=== PATIENT | male | born 1990 | race Hispanic/Latino ===

== ENCOUNTER 2016-10-28 10:17 | Emergency (ER) | payer MEDICAID ==
[2016-10-28 10:17] VITALS: BMI 19.8
[2016-10-28 10:26] VITALS: BP 132/74; RESP 20; TEMP 99.2; O2SAT 96
--- NOTE | 2016-10-28 10:45 | ED PDOC ---
HPI: Wound Care - HPI Time Seen by Provider: 10/28/16 10:37 Chief Complaint (Nursing): Wound Check History Per: Patient Exam Limitations: no limitations Additional Complaint(s): pt. arrives for suture removal, 2 sutures in R eyebrow, no complaints. clean and dry. Past Medical History Reviewed: Historical Data, Nursing Documentation, Vital Signs Vital Signs: Last Vital Signs Temp 99.2 F 10/28/16 10:24 Pulse 108 H 10/28/16 10:24 Resp 20 10/28/16 10:24 BP 132/74 10/28/16 10:24 Pulse Ox 96 10/28/16 10:24 - Medical History PMH: Anxiety (in childhood), Depression (in childhood) - Family History Family History: States: Unknown Family Hx - Immunization History Hx Tetanus Toxoid Vaccination: Yes (UTD) - Home Medications Home Medications: Ambulatory Orders Medication Instructions Recorded No Known Home Med 10/16/16 - Allergies Allergies/Adverse Reactions: Allergies Allergy/AdvReac Type Severity Reaction Status Date / Time No Known Allergies Allergy Verified 10/28/16 10:36 Review of Systems ROS Statement: Except As Marked, All Systems Reviewed And Found Negative Physical Exam - Physical Exam Appears: Positive for: Well, No Acute Distress Head Exam: Positive for: ATRAUMATIC (sutures in place, clean and dry, no drainage/erythema), NORMAL INSPECTION, NORMOCEPHALIC - ECG O2 Sat by Pulse Oximetry: 96 Disposition - Clinical Impression Clinical Impression: Visit for suture removal - Disposition Referrals: [facility] [Outside] Disposition Time: 10:45 Condition: STABLE Instructions: Stitches Removal (ED)
[2016-10-28 11:02] VITALS: PULSE 90
== END 2016-10-28 10:56 | disposition home or self-care (01) ==
LOC: H.ER 10:17
DX: Z48.02 Encounter for removal of sutures (principal)

== ENCOUNTER 2016-11-12 14:24 | Emergency (ER) | payer MEDICAID ==
[2016-11-12 14:26] VITALS: BMI 19.8
--- NOTE | 2016-11-12 15:53 | ED PDOC ---
HPI: General Adult Time Seen by Provider: 11/12/16 15:38 Chief Complaint (Nursing): Back Pain Chief Complaint (Provider): Fever History Per: Patient History/Exam Limitations: no limitations Onset/Duration Of Symptoms: Hrs (x2.5) Have you had recent travel within the past 21 days to any of the following countries: [place], [place], [place] or [place]?: No Current Symptoms Are (Timing): Still Present Severity: Moderate Additional Complaint(s): Dereck Wesley is a 26 year old male, with no pertinent past medical history, who presents to the ED on 11/12/16 for the evaluation of a fever (Tmax 102.0F) that he has reportedly experienced x2.5 hours. Associated chills (since resolved ), sweats, nasal congestion and b/l lower back pain also reported, though he denies throat pain, cough, abdominal pain, nausea, vomiting, diarrhea, dysuria or testicular pain. Denies alcohol or drug use. No headaches, dizziness. No injury to back. Does not use drugs or etoh. PMD: none Past Medical History Reviewed: Historical Data, Nursing Documentation, Vital Signs Vital Signs: Last Vital Signs Temp 98.9 F 11/12/16 18:39 Pulse 80 11/12/16 18:39 Resp 14 11/12/16 18:39 BP 100/44 L 11/12/16 18:39 Pulse Ox 100 11/12/16 18:39 - Medical History PMH: Anxiety (in childhood), Depression (in childhood) Other PMH: ADHD - Surgical History Surgical History: No Surg Hx - Family History Family History: States: Unknown Family Hx - Social History Current smoker - smoking cessation education provided: No Alcohol: None Drugs: Denies - Immunization History Hx Tetanus Toxoid Vaccination: Yes (UTD) - Home Medications Home Medications: Ambulatory Orders Medication Instructions Recorded Ibuprofen [Motrin] 600 mg PO TID 7 Days 11/12/16 - Allergies Allergies/Adverse Reactions: Allergies Allergy/AdvReac Type Severity Reaction Status Date / Time No Known Allergies Allergy Verified 10/28/16 10:36 Review of Systems ROS Statement: Except As Marked, All Systems Reviewed And Found Negative Constitutional: Positive for: Fever (Tmax 102.0F), Chills (resolved), Sweats ENT: Positive for: Nose Congestion. Negative for: Throat Pain Respiratory: Negative for: Cough, Shortness of Breath Gastrointestinal: Negative for: Nausea, Vomiting, Abdominal Pain, Diarrhea Genitourinary Male: Negative for: Dysuria, Other (no testicular pain) Musculoskeletal: Positive for: Back Pain (b/l low back) Skin: Negative for: Rash Neurological: Negative for: Weakness, Dizziness Physical Exam - Reviewed Nursing Documentation Reviewed: Yes Vital Signs Reviewed: Yes - Physical Exam Appears: Positive for: Non-toxic, No Acute Distress Head Exam: Positive for: ATRAUMATIC, NORMOCEPHALIC Skin: Positive for: Normal Color, Warm, Dry Eye Exam: Positive for: Normal appearance, PERRL ENT: Positive for: Nasal Congestion. Negative for: Pharyngeal Erythema, Tonsillar Exudate, Tonsillar Swelling Neck: Positive for: Normal, Painless ROM, Supple Cardiovascular/Chest: Positive for: Regular Rate, Rhythm. Negative for: Murmur Respiratory: Positive for: Normal Breath Sounds. Negative for: Respiratory Distress Gastrointestinal/Abdominal: Positive for: Normal Exam, Soft. Negative for: Tenderness Back: Positive for: Normal Inspection. Negative for: L CVA Tenderness, R CVA Tenderness Extremity: Positive for: Normal ROM. Negative for: Tenderness, Pedal Edema, Swelling Neurologic/Psych: Positive for: Alert, tipple greaser II-XII, Oriented. Negative for: Motor/Sensory Deficits - Laboratory Results Result Diagrams: 11/12/16 16:30 11/12/16 16:30 Interpretation Of Abn Labs: 12.4 wbc - ECG O2 Sat by Pulse Oximetry: 96 (RA) Pulse Ox Interpretation: Normal - Progress ED Course And Treament: 187: Stable. AAOx3. Pain free. No headaches or pain. Ambulating with no issues. Medical Decision Making Medical Decision Makin:38 Initial Impression: fever, chills, nasal congestion Initial Plan: * CXR * Labs * Alcohol Serum * Udip * Urine Drug Screen * Influenza A B * Rapid Strep * IV NS 1000ml at 1000mls/hr * Motrin 600mg PO * Reevaluation Scribe Attestation: Documented by Savi Sinha, acting as a scribe for Sergey Bansal MD. Provider Scribe Attestation: All medical record entries made by the Scribe were at my direction and personally dictated by me. I have reviewed the chart and agree that the record accurately reflects my personal performance of the history, physical exam, medical decision making, and the department course for this patient. I have also personally directed, reviewed, and agree with the discharge instructions and disposition. Disposition - Clinical Impression Clinical Impression: Back pain, URI (upper respiratory infection) - Patient ED Disposition Is Patient to be Admitted: No Counseled Patient/Family Regarding: Studies Performed, Diagnosis, Need For Followup, Rx Given - Disposition Referrals: [facility] [Outside] - 11/15/16 Disposition: Routine/Home Disposition Time: 18:55 Condition: STABLE Additional Instructions: Return if not better in 3 days. Prescriptions: Ibuprofen [Motrin] 600 mg PO TID 7 Days Instructions: Upper Respiratory Infection (ED), Acute Low Back Pain (ED)
[2016-11-12] MEDS ORDERED: Sodium Chloride 0.9% 1,000 ML IV STA (16:05)
[2016-11-12 17:09] LABS: BASO % 0.2 % (0.0-2.0); EOS % 0.1 % (0.0-4.0); HEMATOCRIT 39.4 % (35.0-51.0); LYMPH # 0.5 K/uL (1.0-4.3); LYMPH % 4.3 % (20.0-40.0); MEAN CELL VOLUME 82.7 fl (80.0-94.0); MEAN CORPUSCULAR HEMOGLOBIN 27.5 pg (27.0-31.0); MEAN CORPUSCULAR HGB CONC 33.2 g/dL (33.0-37.0); MEAN PLATELET VOLUME 9.2 fl (7.2-11.7); MONO # 1.4 K/uL (0.0-0.8); MONO % 11.1 % (0.0-10.0); NEUT # 10.5 K/uL (1.8-7.0); NEUT % 84.3 % (50.0-75.0); NRBC % 0.1 % (0.0-0.0); PLATELET COUNT 201 K/uL (130-400); RED CELL DISTRIBUTION WIDTH 14.2 % (11.5-14.5); WHITE BLOOD COUNT 12.4 K/uL (4.8-10.8)
[2016-11-12 17:16] LABS: ALB/GLOB RATIO 1.2 (1.0-2.1); ALCOHOL SERUM < 10 mg/dl (0-10); ALKALINE PHOSPHATASE 63 U/L (38-126); ALT/SGPT 43 U/L (21-72); AST/SGOT 50 U/L (17-59); BILIRUBIN,TOTAL 0.6 mg/dl (0.2-1.3); BLOOD UREA NITROGEN 18 mg/dl (9-20); CALCIUM 9.2 mg/dL (8.4-10.2); CARBON DIOXIDE 26 mmol/L (22-30); CHLORIDE 101 mmol/L (98-107); GFR AFRICAN-AMERICAN > 60; GLUCOSE,RANDOM 77 mg/dL (75-110); POTASSIUM 3.5 MMOL/L (3.6-5.0); SODIUM 140 mmol/l (132-148); TOTAL PROTEIN 7.4 G/DL (6.3-8.2)
[2016-11-12 18:31] VITALS: TEMP 98.9
[2016-11-12 18:31] LABS: NEUTROPHIL 84 % (42-75); TOTAL CELLS COUNTED 100
[2016-11-12 18:40] VITALS: BP 100/44; PULSE 80; RESP 14
[2016-11-12 18:57] VITALS: O2SAT 96
--- NOTE | 2016-11-13 08:24 | RAD ---
HISTORY: dyspnea COMPARISON: No prior. FINDINGS: LUNGS: No active pulmonary disease. PLEURA: No significant pleural effusion identified, no pneumothorax apparent. CARDIOVASCULAR: Normal. OSSEOUS STRUCTURES: No significant abnormalities. VISUALIZED UPPER ABDOMEN: Normal. OTHER FINDINGS: None. IMPRESSION: No active disease.
== END 2016-11-12 19:19 | disposition home or self-care (01) ==
LOC: H.ER 14:24
DX: J06.9 Acute upper respiratory infection, unspecified (principal); M54.9 Dorsalgia, unspecified; R09.81 Nasal congestion; R68.83 Chills (without fever); F90.9 Attention-deficit hyperactivity disorder, unspecified type

== ENCOUNTER 2017-01-30 01:51 | Inpatient (IN) | payer MEDICAID ==
[2017-01-30 01:51] VITALS: BMI 19.8
[2017-01-30 02:01] VITALS: O2SAT 100
--- NOTE | 2017-01-30 02:16 | ED PDOC ---
HPI: Psych/Substance Abuse Time Seen by Provider: 01/30/17 01:57 Chief Complaint (Nursing): Psychiatric Evaluation Chief Complaint (Provider): Crisis eval History Per: Patient Additional Complaint(s): 26 yo male, reports a PMH of Depression and ADHD, presents with complaints of feeling depressed because he has alot going on in his life; however, Pt appears to be manic. Flight of ideas with delusion so grandeur. Reports he wants to join the [employer]. Admits to doing PCP often, denies nay tonight Past Medical History Reviewed: Nursing Documentation, Vital Signs Vital Signs: Last Vital Signs Temp 98.4 F 01/30/17 01:59 Pulse 82 01/30/17 01:59 Resp 16 01/30/17 01:59 BP 121/84 01/30/17 01:59 Pulse Ox 100 01/30/17 01:59 - Medical History PMH: Anxiety (in childhood), Depression (in childhood) - Family History Family History: States: Unknown Family Hx - Social History Alcohol: Social - Immunization History Hx Tetanus Toxoid Vaccination: Yes (UTD) - Home Medications Home Medications: Ambulatory Orders Medication Instructions Recorded Ibuprofen [Motrin] 600 mg PO TID 7 Days 11/12/16 - Allergies Allergies/Adverse Reactions: Allergies Allergy/AdvReac Type Severity Reaction Status Date / Time No Known Allergies Allergy Verified 01/30/17 01:59 Review of Systems ROS Statement: Except As Marked, All Systems Reviewed And Found Negative Physical Exam - Reviewed Nursing Documentation Reviewed: Yes Vital Signs Reviewed: Yes - Physical Exam Appears: Positive for: Well, Non-toxic, No Acute Distress Head Exam: Positive for: ATRAUMATIC, NORMAL INSPECTION, NORMOCEPHALIC Skin: Positive for: Normal Color, Warm, DRY Eye Exam: Positive for: EOMI, Normal appearance, PERRL ENT: Positive for: Normal ENT Inspection Neck: Positive for: Normal, Painless ROM Cardiovascular/Chest: Positive for: Regular Rate, Rhythm Respiratory: Positive for: CNT, Normal Breath Sounds Gastrointestinal/Abdominal: Positive for: Normal Exam, Bowel Sounds, Soft Back: Positive for: Normal Inspection Extremity: Positive for: Normal ROM Neurologic/Psych: Positive for: Alert, Oriented - Laboratory Results Result Diagrams: 01/30/17 02:40 01/30/17 02:40 - ECG O2 Sat by Pulse Oximetry: 100 Medical Decision Making Medical Decision Making: Diagnostics ordered CBC and COMP resulted WNL Alcohol < 10 UDS pending Pt medically cleared and underwent crisis eval. See note. To be admitted. ED MD made aware Disposition - Clinical Impression Clinical Impression: Bipolar 1 disorder - Patient ED Disposition Is Patient to be Admitted: No - Disposition Disposition: Routine/Home Disposition Time: 03:46 Condition: STABLE - POA Present On Arrival: None
[2017-01-30 02:45] LABS: BASO % 0.5 % (0.0-2.0); EOS # 0.1 K/uL (0.0-0.7); EOS % 0.7 % (0.0-4.0); HEMATOCRIT 42.4 % (35.0-51.0); LYMPH # 1.6 K/uL (1.0-4.3); LYMPH % 19.8 % (20.0-40.0); MEAN CELL VOLUME 83.4 fl (80.0-94.0); MEAN CORPUSCULAR HEMOGLOBIN 28.6 pg (27.0-31.0); MEAN CORPUSCULAR HGB CONC 34.3 g/dL (33.0-37.0); MEAN PLATELET VOLUME 8.9 fl (7.2-11.7); MONO # 0.8 K/uL (0.0-0.8); MONO % 10.5 % (0.0-10.0); NEUT # 5.5 K/uL (1.8-7.0); NEUT % 68.5 % (50.0-75.0); NRBC % 0.2 % (0.0-0.0); RED CELL DISTRIBUTION WIDTH 13.7 % (11.5-14.5); WHITE BLOOD COUNT 8.1 K/uL (4.8-10.8)
[2017-01-30 02:58] LABS: ALB/GLOB RATIO 1.5 (1.0-2.1); ALCOHOL SERUM < 10 mg/dl (0-10); ALKALINE PHOSPHATASE 61 U/L (38-126); ALT/SGPT 39 U/L (21-72); AST/SGOT 30 U/L (17-59); BILIRUBIN,TOTAL 0.8 mg/dl (0.2-1.3); BLOOD UREA NITROGEN 17 mg/dl (9-20); CALCIUM 9.6 mg/dL (8.4-10.2); CARBON DIOXIDE 27 mmol/L (22-30); CHLORIDE 104 mmol/L (98-107); GFR AFRICAN-AMERICAN > 60; GLUCOSE,RANDOM 79 mg/dL (75-110); POTASSIUM 3.7 MMOL/L (3.6-5.0); SODIUM 144 mmol/l (132-148); TOTAL PROTEIN 8.2 G/DL (6.3-8.2)
[2017-01-30 05:39] LABS: RBC URINE 4 /hpf (0-3); URINE BACTERIA RARE (<OCC); URINE BILIRUBIN NEGATIVE (NEGATIVE); URINE BLOOD NEGATIVE (NEGATIVE); URINE COLOR YELLOW (YELLOW); URINE GLUCOSE (UA) NEG (Normal); URINE KETONE NEGATIVE (NEGATIVE); URINE LEUKOCYTE ESTERASE NEG Leu/uL (Negative); URINE PROTEIN NEGATIVE (NEGATIVE); WBC CLUMPS FEW /hpf; WBC URINE 10 /hpf (0-5)
[2017-01-30] MEDS ORDERED: Magnesium Hydroxide Susp 30 ml UD PO PRN (06:37)
[2017-01-30] MEDS ORDERED: DiphenhydrAMINE 50 mg/ml Inj IM PRN (06:37)
[2017-01-30] MEDS ORDERED: Alum-Mag Hydrox-Simethicone Susp (30 mL) PO PRN (06:37)
[2017-01-30 09:13] LABS: T4 7.14 ug/dl (5.5-11.0)
[2017-01-30 09:27] LABS: THYROID STIMULATING HORMONE 1.2 mIU/ML (0.46-4.68)
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
[2017-01-30 17:55] LABS: RBC URINE 1 /hpf (0-3); URINE BACTERIA RARE (<OCC); URINE BILIRUBIN NEGATIVE (NEGATIVE); URINE BLOOD NEGATIVE (NEGATIVE); URINE COLOR YELLOW (YELLOW); URINE GLUCOSE (UA) NEG (Normal); URINE KETONE NEGATIVE (NEGATIVE); URINE LEUKOCYTE ESTERASE NEG Leu/uL (Negative); URINE PROTEIN NEGATIVE (NEGATIVE); URINE UROBILINOGEN 0.2-1.0 mg/dL (0.2-1.0); WBC URINE 2 /hpf (0-5)
[2017-01-30] MEDS: Risperidone M tab 0.5MG PO SCH (21:42)
--- NOTE | 2017-01-31 12:44 | PCM.PYCHPN ---
Psychiatric Progress Note - Psychiatric Progress Note Patient seen today, length of contact: Patient evaluated, case discussed with team, chart reviewed, 35 minutes Patient Chief Complaint: "I'm not feeling that depressed anymore" Problems Identified/Issues Discussed: Patient reports that he is not feeling as depressed. He is requesting to be discharged. He denied ideation to harm himself. He is tangential on conversation at times but is able to be redirected. He talked about his chronic substance abuse in an inappropriately cheerful manner. He discussed that he used a PCP called "Paul merino". Associate Justice attempted to discuss the dangers of substance abuse and how it can affect mood/psychosis, but he has poor insight into his chronic substance use and has no intention of cessation. He denies current AH/VH/paranoia. Medication Change: Yes (Start Zoloft 50 mg PO Daily) Medical Record Reviewed: Yes Mental Status Examination - Cognitive Function Orientation: Person, Place, Situation, Time Memory: Intact Attention: WNL Concentration: WNL Association: Loose Fund of Knowledge: WNL Decription of patient's judgement and insights: Poor insight/judgment - Mood Mood: Neutral - Affect Affect: Broad - Speech Speech: Appropriate - Formal Thought Process Formal Thought Process: Loosening of associations, Flight of ideas Psychotic Thoughts and Behaviors: NO AH/VH/paranoia - Suicidal Ideation Suicidal Ideation: No - Homicidal Ideation Homicidal Ideation: No Goal/Treatment Plan - Goal/Treatment Plan Need for Continued Stay: Remain at risks for inpatient hospitalization Progress Toward Problem(s) and Goals/Treatment Plan: 26 yo male with mood disorder unspecified, could have substance induced mood and psychotic disorder, now denies mood and psychotic symptoms. He denies ideation to harm himself. Patient submitted a 48 hour letter requesting discharge. He does not meet criteria for involuntary commitment and will likely be discharged tomorrow. -Zoloft 50 mg PO Daily, Risperdal 0.5 mg PO HS -Disposition planning -Individual and group therapy Estimated Date of D/C: 02/01/17
[2017-01-31] MEDS: Risperidone M tab 0.5MG PO SCH (21:04)
[2017-02-01 06:04] VITALS: BP 115/68; PULSE 65; RESP 18; TEMP 97.1
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
[2017-02-01 08:38] LABS: HAV AB (IGM) Nonreactive (Nonreactive)
== END 2017-02-01 09:30 | disposition home or self-care (01) | DRG 430 ==
LOC: H.ER 01:51 → H.ERHOLD 03:39 → H.STEP 06:27
PROVIDERS: ADMIT Psychiatry & Neurology Psychiatry; ATTEND Psychiatry & Neurology Psychiatry
PROC: GZHZZZZ Group Psychotherapy (ICD-10-PCS; principal; 2017-01-30)
PROC: GZ58ZZZ Individual Psychotherapy, Cognitive-Behavioral (ICD-10-PCS; 2017-01-31)
DX: F31.60 Bipolar disorder, current episode mixed, unspecified (principal); F16.10 Hallucinogen abuse, uncomplicated; F14.90 Cocaine use, unspecified, uncomplicated; F39 Unspecified mood [affective] disorder; F12.90 Cannabis use, unspecified, uncomplicated; F43.10 Post-traumatic stress disorder, unspecified; F90.9 Attention-deficit hyperactivity disorder, unspecified type; F17.210 Nicotine dependence, cigarettes, uncomplicated; Z91.410 Personal history of adult physical and sexual abuse

== ENCOUNTER 2017-02-10 00:51 | Emergency (ER) | payer MEDICAID ==
[2017-02-10 00:53] VITALS: BMI 19.8
[2017-02-10 01:00] VITALS: BP 107/62; PULSE 62; RESP 17; TEMP 97.8; O2SAT 99
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
== END 2017-02-10 05:18 ==
LOC: H.ER 00:51
DX: F43.20 Adjustment disorder, unspecified (principal); F31.9 Bipolar disorder, unspecified; F41.9 Anxiety disorder, unspecified; Z91.19 Patient's noncompliance with other medical treatment and regimen

== ENCOUNTER 2017-08-06 21:30 | Emergency (ER) | payer MEDICAID ==
[2017-08-06 21:30] VITALS: BMI 19.8
[2017-08-06 21:38] VITALS: BP 141/82; PULSE 99; RESP 16; TEMP 98.2; O2SAT 99
--- NOTE | 2017-08-06 22:04 | ED PDOC ---
HPI: Psych/Substance Abuse Time Seen by Provider: 08/06/17 22:00 Chief Complaint (Nursing): Psychiatric Evaluation Chief Complaint (Provider): crisis eval History Per: Patient Additional Complaint(s): 27 year old male with history of anxiety and depression presents for crisis evaluation. Patient states he has been feeling suicidal today and almost threw himself in front of a car today. Patient states he smoked PCP today and marijuana to see if this would help his anxiety but it did not. He denies use of alcohol or any other drugs. Patient states he is currently undomiciled. He states he used to take zoloft and rsiperdal but have off of these meds for several months. Past Medical History Reviewed: Historical Data, Nursing Documentation, Vital Signs Vital Signs: Last Vital Signs Temp 98.2 F 08/06/17 21:35 Pulse 99 H 08/06/17 21:35 Resp 16 08/06/17 21:35 BP 141/82 08/06/17 21:35 Pulse Ox 99 08/06/17 21:35 - Medical History PMH: Anxiety, Bipolar Disorder, Depression - Surgical History Surgical History: No Surg Hx - Family History Family History: States: Unknown Family Hx - Living Arrangements Living Arrangements: Other (undomiciled) - Social History Current smoker - smoking cessation education provided: Yes Alcohol: None Drugs: Cannabis, Other (PCP) - Immunization History Hx Tetanus Toxoid Vaccination: Yes (UTD) - Home Medications Home Medications: Ambulatory Orders Medication Instructions Recorded Risperidone 0.5 mg PO HS #30 tablet 01/31/17 Sertraline [Zoloft] 50 mg PO DAILY #30 tab 01/31/17 Ibuprofen [Motrin] 600 mg PO TID 7 Days tab 05/01/17 - Allergies Allergies/Adverse Reactions: Allergies Allergy/AdvReac Type Severity Reaction Status Date / Time No Known Allergies Allergy Verified 06/16/17 00:37 Review of Systems ROS Statement: Except As Marked, All Systems Reviewed And Found Negative Psych: Positive for: Anxiety, Depression, Suicidal ideation, Other (substance abuse) Physical Exam - Reviewed Nursing Documentation Reviewed: Yes Vital Signs Reviewed: Yes - Physical Exam Appears: Positive for: Well, Non-toxic, No Acute Distress Skin: Negative for: Rash Eye Exam: Positive for: Normal appearance Cardiovascular/Chest: Positive for: Regular Rate, Rhythm Respiratory: Positive for: Normal Breath Sounds Neurologic/Psych: Positive for: Alert, Oriented, Mood/Affect (anxious) - Laboratory Results Result Diagrams: 08/06/17 00:02 08/06/17 00:02 - ECG O2 Sat by Pulse Oximetry: 99 Pulse Ox Interpretation: Normal Medical Decision Making Medical Decision Makin27 year old male here for crisis eval Plan: 1:1 bedside observation Crisis consult CBC CMP BAL UDS UA Given use of PCP this evening, as per crisis counselor and psychiatrist wagon driller Dr. Elias, patient will be observed in ED for several hours and then re- evaluated to determine possible indication for admission. Patient agrees with plan. Crisis counselor will re-evaluate patient at 4:00 am. 4:00 am: crisis counselor at bedside for re-evaluation. Patient is no longer suicidal. He is stable for discharge. Disposition - Clinical Impression Clinical Impression: Substance induced mood disorder - Patient ED Disposition Is Patient to be Admitted: No Counseled Patient/Family Regarding: Need For Followup - Disposition Referrals: [facility] [Outside] Disposition: Routine/Home Disposition Time: 05:04 Condition: STABLE Additional Instructions: Follow up as directed. Instructions: Polysubstance Abuse (ED), Mood Disorders (ED) Forms: [employer] (Nepali) Results - Lab Results Lab Results: 08/06/17 08/06/17 08/06/17 23:57 23:57 00:02 WBC 9.1 RBC 5.37 Hgb 14.8 Hct 44.5 MCV 82.9 MCH 27.5 MCHC 33.2 RDW 13.3 Plt Count 272 MPV 8.8 Neut % (Auto) 71.2 Lymph % (Auto) 23.0 Barren % (Auto) 5.4 Eos % (Auto) 0.1 Baso % (Auto) 0.3 Neut # 6.4 Lymph # 2.1 Barren # 0.5 Eos # 0.0 Baso # 0.0 Sodium Potassium Chloride Carbon Dioxide Anion Gap BUN Creatinine Est GFR ( Amer) Est GFR (Non-Af Amer) Random Glucose Calcium Total Bilirubin AST ALT Alkaline Phosphatase Total Protein Albumin Globulin Albumin/Globulin Ratio Urine Color Yellow Urine Clarity Slighty-cloudy Urine pH 5.0 Ur Specific [place] 1.020 Urine Protein 30 Urine Glucose (UA) Neg Urine Ketones 80 Urine Blood Negative Urine Nitrate Negative Urine Bilirubin Negative Urine Urobilinogen 2.0 Ur Leukocyte Esterase Neg Urine RBC (Auto) 4 H Urine Microscopic WBC 3 Urine Opiates Screen Negative Urine Methadone Screen Negative Ur Barbiturates Screen Negative Ur Phencyclidine Scrn Positive H Ur Amphetamines Screen Negative U Benzodiazepines Scrn Negative U Oth Cocaine Metabols Negative U Cannabinoids Screen Positive H Alcohol, Quantitative 08/06/17 00:02 WBC RBC Hgb Hct MCV MCH MCHC RDW Plt Count MPV Neut % (Auto) Lymph % (Auto) Barren % (Auto) Eos % (Auto) Baso % (Auto) Neut # Lymph # Barren # Eos # Baso # Sodium 140 Potassium 4.0 Chloride 103 Carbon Dioxide 25 Anion Gap 16 BUN 26 H Creatinine 0.9 Est GFR ( Amer) > 60 Est GFR (Non-Af Amer) > 60 Random Glucose 81 Calcium 9.7 Total Bilirubin 1.0 AST 25 ALT 29 Alkaline Phosphatase 76 Total Protein 8.3 H Albumin 4.8 Globulin 3.5 Albumin/Globulin Ratio 1.4 Urine Color Urine Clarity Urine pH Ur Specific [place] Urine Protein Urine Glucose (UA) Urine Ketones Urine Blood Urine Nitrate Urine Bilirubin Urine Urobilinogen Ur Leukocyte Esterase Urine RBC (Auto) Urine Microscopic WBC Urine Opiates Screen Urine Methadone Screen Ur Barbiturates Screen Ur Phencyclidine Scrn Ur Amphetamines Screen U Benzodiazepines Scrn U Oth Cocaine Metabols U Cannabinoids Screen Alcohol, Quantitative < 10
[2017-08-07 00:09] LABS: BASO % 0.3 % (0.0-2.0); EOS % 0.1 % (0.0-4.0); HEMATOCRIT 44.5 % (35.0-51.0); LYMPH # 2.1 K/uL (1.0-4.3); MEAN CELL VOLUME 82.9 fl (80.0-94.0); MEAN CORPUSCULAR HEMOGLOBIN 27.5 pg (27.0-31.0); MEAN CORPUSCULAR HGB CONC 33.2 g/dL (33.0-37.0); MEAN PLATELET VOLUME 8.8 fl (7.2-11.7); MONO # 0.5 K/uL (0.0-0.8); MONO % 5.4 % (0.0-10.0); NEUT # 6.4 K/uL (1.8-7.0); NEUT % 71.2 % (50.0-75.0); NRBC % 0.5 % (0.0-0.0); RED CELL DISTRIBUTION WIDTH 13.3 % (11.5-14.5); WHITE BLOOD COUNT 9.1 K/uL (4.8-10.8)
[2017-08-07 00:16] LABS: RBC URINE 4 /hpf (0-3); URINE BILIRUBIN NEGATIVE (NEGATIVE); URINE BLOOD NEGATIVE (NEGATIVE); URINE COLOR YELLOW (YELLOW); URINE GLUCOSE (UA) NEG (Normal); URINE KETONE 80 mg/dL (NEGATIVE); URINE LEUKOCYTE ESTERASE NEG Leu/uL (Negative); URINE PROTEIN 30 mg/dL (NEGATIVE); WBC URINE 3 /hpf (0-5)
[2017-08-07 00:18] LABS: ALCOHOL SERUM < 10 mg/dl (0-10); ALKALINE PHOSPHATASE 76 U/L (38-126); ALT/SGPT 29 U/L (21-72); AST/SGOT 25 U/L (17-59); BLOOD UREA NITROGEN 26 mg/dl (9-20); CALCIUM 9.7 mg/dL (8.4-10.2); CARBON DIOXIDE 25 mmol/L (22-30); CHLORIDE 103 mmol/L (98-107); GFR AFRICAN-AMERICAN > 60; GLUCOSE,RANDOM 81 mg/dL (75-110); SODIUM 140 mmol/l (132-148); TOTAL PROTEIN 8.3 G/DL (6.3-8.2)
[2017-08-07 00:19] LABS: ALB/GLOB RATIO 1.4 (1.0-2.1)
== END 2017-08-07 05:24 | disposition home or self-care (01) ==
LOC: H.ER 21:30
DX: F32.9 Major depressive disorder, single episode, unspecified (principal); F31.9 Bipolar disorder, unspecified; F41.9 Anxiety disorder, unspecified; F19.94 Other psychoactive substance use, unspecified with psychoactive substance-induced mood disorder; F17.200 Nicotine dependence, unspecified, uncomplicated

== ENCOUNTER 2018-04-16 08:35 | Emergency (ER) | payer MEDICAID ==
[2018-04-16 08:39] VITALS: BMI 20.2
[2018-04-16 08:42] VITALS: BP 102/64; PULSE 71; RESP 20; TEMP 97.9; O2SAT 97
--- NOTE | 2018-04-16 09:18 | ED PDOC ---
HPI: Dental Pain/Injury Time Seen by Provider: 04/16/18 08:47 Chief Complaint (Nursing): Dental Pain Chief Complaint (Provider): Dental Pain History Per: Patient History/Exam Limitations: no limitations Onset/Duration Of Symptoms: Days (x 2) Current Symptoms Are (Timing): Still Present Quality: "Pain" Additional Complaint(s): 27 year old male presents to the ED with a dental abscess ongoing for the last 2 days. Patient was seen here two days ago and at 1 am this morning and was unable to fill antibiotic prescription due to insurance discrepancy. He is requesting Motrin and a dose of penicillin. Patient reports that mother is going to fill his prescription and will give it to him this afternoon, but he wanted a dose prior. Offers no other medical complaints. PMD: none provided Past Medical History Reviewed: Historical Data, Nursing Documentation, Vital Signs Vital Signs: Last Vital Signs Temp 97.9 F 04/16/18 08:39 Pulse 71 04/16/18 08:39 Resp 20 04/16/18 08:39 BP 102/64 04/16/18 08:39 Pulse Ox 97 04/16/18 08:39 - Medical History PMH: Anxiety, Bipolar Disorder, Depression, Schizophrenia Denies: Diabetes, Hepatitis, HIV, HTN, Chronic Kidney Disease, Seizures, Sexually Transmitted Disease - Surgical History Surgical History: No Surg Hx - Family History Family History: States: Unknown Family Hx - Immunization History Hx Tetanus Toxoid Vaccination: Yes (UTD) Hx Influenza Vaccination: Yes Hx Pneumococcal Vaccination: Yes - Home Medications Home Medications: Ambulatory Orders Medication Instructions Recorded traZODone [Desyrel] 50 mg PO HS #30 tab 10/24/17 Penicillin VK [Penicillin VK Tab] 500 mg PO QID 11/19/17 QUEtiapine [SEROquel] 200 mg PO HS 30 Days #30 tab 11/24/17 Sertraline [Zoloft] 25 mg PO DAILY 30 Days #30 tab 11/24/17 Ibuprofen [Motrin] 600 mg PO Q8 PRN #21 tab 04/15/18 Penicillin VK [Penicillin VK Tab] 1 tab PO QID #40 tab 04/15/18 - Allergies Allergies/Adverse Reactions: Allergies Allergy/AdvReac Type Severity Reaction Status Date / Time No Known Allergies Allergy Verified 04/16/18 08:53 Review of Systems ROS Statement: Except As Marked, All Systems Reviewed And Found Negative ENT: Positive for: Mouth Swelling, Other (dental abscess, right side of his mouth) Physical Exam - Reviewed Nursing Documentation Reviewed: Yes Vital Signs Reviewed: Yes - Physical Exam Appears: Positive for: No Acute Distress Head Exam: Positive for: ATRAUMATIC, NORMAL INSPECTION, NORMOCEPHALIC Skin: Positive for: Normal Color, Warm, Dry Eye Exam: Positive for: EOMI, Normal appearance, PERRL ENT: Positive for: Other (Right lower jaw decayed all the way down to base of gums ) Cardiovascular/Chest: Positive for: Regular Rate, Rhythm Respiratory: Positive for: Normal Breath Sounds Neurologic/Psych: Positive for: Alert, Oriented (x 3). Negative for: Motor/ Sensory Deficits - ECG O2 Sat by Pulse Oximetry: 97 (RA) Pulse Ox Interpretation: Normal Medical Decision Making Medical Decision Makin:19 Impression: dental abscess Initial Plan: --Motrin 600 mg PO --Penicillin VK 500 mg PO Scribe Attestation: Documented by Narcisa Bennett, acting as a scribe for Karen Irizarry MD Provider Scribe Attestation: All medical record entries made by the Scribe were at my direction and personally dictated by me. I have reviewed the chart and agree that the record accurately reflects my personal performance of the history, physical exam, medical decision making, and the department course for this patient. I have also personally directed, reviewed, and agree with the discharge instructions and disposition. patient advised to get his the prescription filled. Disposition - Clinical Impression Clinical Impression: Dental caries - Patient ED Disposition Is Patient to be Admitted: No Doctor Will See Patient In The: Office Counseled Patient/Family Regarding: Diagnosis, Need For Followup - Disposition Disposition: Routine/Home Disposition Time: 09:15 Condition: STABLE Instructions: Tooth Decay, Adult Forms: [employer] (Togolese) - POA Present On Arrival: None
== END 2018-04-16 09:41 | disposition home or self-care (01) ==
LOC: H.ER 08:35
DX: K02.9 Dental caries, unspecified (principal)

== ENCOUNTER 2018-05-01 07:00 | Emergency (ER) | payer MEDICAID ==
[2018-05-01 07:15] VITALS: O2SAT 99
--- NOTE | 2018-05-01 07:22 | ED PDOC ---
HPI: General Adult Time Seen by Provider: 05/01/18 07:10 Chief Complaint (Nursing): Medical Clearance Chief Complaint (Provider): Medical clearance History Per: Patient History/Exam Limitations: no limitations Onset/Duration Of Symptoms: Hrs (today) Additional Complaint(s): Dereck Wesley is a 27 year old male, with a past medical history of HTN, who was brought to the emergency by [facility] for medical and psychiatric clearance prior to incarceration. Patient is currently complaining of a nonproductive cough. He denies any fever, chills, shortness of breath or other medical complaints. PMD: None provided. Past Medical History Reviewed: Historical Data, Nursing Documentation, Vital Signs Vital Signs: Last Vital Signs Temp 97.9 F 05/01/18 07:08 Pulse 69 05/01/18 07:08 Resp 18 05/01/18 07:08 BP 124/66 05/01/18 07:08 Pulse Ox 99 05/01/18 07:23 - Medical History PMH: Anxiety, Bipolar Disorder, Depression, Schizophrenia Denies: Diabetes, Hepatitis, HIV, HTN, Chronic Kidney Disease, Seizures, Sexually Transmitted Disease - Surgical History Surgical History: No Surg Hx - Family History Family History: States: Unknown Family Hx - Immunization History Hx Tetanus Toxoid Vaccination: Yes (UTD) Hx Influenza Vaccination: Yes Hx Pneumococcal Vaccination: Yes - Home Medications Home Medications: Ambulatory Orders Medication Instructions Recorded traZODone [Desyrel] 50 mg PO HS #30 tab 10/24/17 Penicillin VK [Penicillin VK Tab] 500 mg PO QID 11/19/17 QUEtiapine [SEROquel] 200 mg PO HS 30 Days #30 tab 11/24/17 Sertraline [Zoloft] 25 mg PO DAILY 30 Days #30 tab 11/24/17 Ibuprofen [Motrin] 600 mg PO Q8 PRN #21 tab 04/15/18 Penicillin VK [Penicillin VK Tab] 1 tab PO QID #40 tab 04/15/18 Azithromycin [Zithromax] 250 mg PO DAILY #6 tab 05/01/18 - Allergies Allergies/Adverse Reactions: Allergies Allergy/AdvReac Type Severity Reaction Status Date / Time No Known Allergies Allergy Verified 05/01/18 07:07 Review of Systems ROS Statement: Except As Marked, All Systems Reviewed And Found Negative Constitutional: Negative for: Fever, Chills Respiratory: Positive for: Cough (nonproductive). Negative for: Shortness of Breath Physical Exam - Reviewed Nursing Documentation Reviewed: Yes Vital Signs Reviewed: Yes - Physical Exam Appears: Positive for: No Acute Distress Head Exam: Positive for: ATRAUMATIC, NORMAL INSPECTION, NORMOCEPHALIC Skin: Positive for: Normal Color, Warm, Dry Eye Exam: Positive for: Normal appearance, EOMI, PERRL Neck: Positive for: Painless ROM Cardiovascular/Chest: Positive for: Regular Rate, Rhythm. Negative for: Murmur Respiratory: Positive for: Normal Breath Sounds. Negative for: Respiratory Distress Gastrointestinal/Abdominal: Positive for: Normal Exam, Soft. Negative for: Tenderness Back: Positive for: Normal Inspection Extremity: Positive for: Normal ROM (upper and lower extremities). Negative for : Deformity Neurologic/Psych: Positive for: Alert, Oriented - ECG O2 Sat by Pulse Oximetry: 99 (RA) Pulse Ox Interpretation: Normal Medical Decision Making Medical Decision Making: Time: 07:10 Initial Plan: --Chest portable [RAD] --Reevaluation ----- Scribe Attestation: Documented by Rosales Fernández, acting as a scribe for Demarcus Holguin MD. Provider Scribe Attestation: All medical record entries made by the Scribe were at my direction and personally dictated by me. I have reviewed the chart and agree that the record accurately reflects my personal performance of the history, physical exam, medical decision making, and the department course for this patient. I have also personally directed, reviewed, and agree with the discharge instructions and disposition. Disposition - Clinical Impression Clinical Impression: URI (upper respiratory infection) - Patient ED Disposition Is Patient to be Admitted: No Counseled Patient/Family Regarding: Studies Performed, Diagnosis, Need For Followup, Rx Given - Disposition Referrals: [facility] [Outside] Disposition: Routine/Home Disposition Time: 08:04 Condition: FAIR Prescriptions: Azithromycin [Zithromax] 250 mg PO DAILY #6 tab Instructions: General (DC), Bacterial Upper Respiratory Infection, Adult Forms: [employer] (Swedish)
[2018-05-01 08:12] VITALS: BP 113/68; PULSE 61; RESP 17; TEMP 97.4
--- NOTE | 2018-05-01 09:42 | RAD ---
Date of service: 05/01/2018 HISTORY: cough COMPARISON: Frontal chest radiograph 10/03/2017. FINDINGS: LUNGS: No active pulmonary disease. PLEURA: No significant pleural effusion identified, no pneumothorax apparent. CARDIOVASCULAR: Normal. OSSEOUS STRUCTURES: No significant abnormalities. VISUALIZED UPPER ABDOMEN: Normal. OTHER FINDINGS: None. IMPRESSION: No interval acute cardiopulmonary disease appreciated.
== END 2018-05-01 08:11 | disposition home or self-care (01) ==
LOC: H.ER 07:00
DX: J06.9 Acute upper respiratory infection, unspecified (principal); Z86.59 Personal history of other mental and behavioral disorders; Z00.8 Encounter for other general examination; I10 Essential (primary) hypertension

== ENCOUNTER 2018-05-26 20:08 | Emergency (ER) | payer MEDICAID ==
[2018-05-26 20:26] VITALS: BP 126/77; PULSE 66; RESP 18; TEMP 98.4; O2SAT 99
--- NOTE | 2018-05-26 21:12 | ED PDOC ---
HPI: CCC, URI, Sore Throat Time Seen by Provider: 05/26/18 20:30 Chief Complaint (Nursing): Flu-like Symptoms Chief Complaint (Provider): body aches History Per: Patient History/Exam Limitations: no limitations Onset/Duration Of Symptoms: Days (x2) Current Symptoms Are (Timing): Still Present Additional Complaint(s): 28 year old male with pmHx of bipolar disorder, presents to ED with complaints of generalized bodyaches, decreased appetite, and lower back pain since yesterday. He denies any nausea, vomiting, diarrhea, fever, chills, headaches, cough, nasal congestion, or sore throat. PMD: none Past Medical History Reviewed: Historical Data, Nursing Documentation, Vital Signs Vital Signs: Last Vital Signs Temp 98.4 F 05/26/18 20:23 Pulse 66 05/26/18 20:23 Resp 18 05/26/18 20:23 BP 126/77 05/26/18 20:23 Pulse Ox 99 05/26/18 20:23 - Medical History PMH: Anxiety, Bipolar Disorder, Depression, Schizophrenia - Surgical History Surgical History: No Surg Hx - Family History Family History: States: No Known Family Hx - Living Arrangements Living Arrangements: Other (non-domiciled) - Social History Current smoker - smoking cessation education provided: No Alcohol: None Drugs: Cannabis - Immunization History Hx Tetanus Toxoid Vaccination: Yes (UTD) - Home Medications Home Medications: Ambulatory Orders Medication Instructions Recorded traZODone [Desyrel] 50 mg PO HS #30 tab 10/24/17 Penicillin VK [Penicillin VK Tab] 500 mg PO QID 11/19/17 QUEtiapine [SEROquel] 200 mg PO HS 30 Days #30 tab 11/24/17 Sertraline [Zoloft] 25 mg PO DAILY 30 Days #30 tab 11/24/17 Ibuprofen [Motrin] 600 mg PO Q8 PRN #21 tab 04/15/18 Penicillin VK [Penicillin VK Tab] 1 tab PO QID #40 tab 04/15/18 Azithromycin [Zithromax] 250 mg PO DAILY #6 tab 05/01/18 - Allergies Allergies/Adverse Reactions: Allergies Allergy/AdvReac Type Severity Reaction Status Date / Time No Known Allergies Allergy Verified 05/26/18 20:23 Review of Systems ROS Statement: Except As Marked, All Systems Reviewed And Found Negative Constitutional: Positive for: Other (generalized bodyaches). Negative for: Fever, Chills ENT: Negative for: Nose Congestion, Throat Pain Respiratory: Negative for: Cough Gastrointestinal: Positive for: Other (decreased appetite). Negative for: Nausea, Vomiting, Diarrhea Musculoskeletal: Positive for: Back Pain (lower) Neurological: Negative for: Headache Physical Exam - Reviewed Nursing Documentation Reviewed: Yes Vital Signs Reviewed: Yes - Physical Exam Appears: Positive for: Well, Non-toxic, No Acute Distress Head Exam: Positive for: ATRAUMATIC, NORMAL INSPECTION, NORMOCEPHALIC Skin: Positive for: Normal Color Eye Exam: Positive for: Normal appearance ENT: Positive for: Normal ENT Inspection. Negative for: Sinus Pain/Drainage, Pharyngeal Erythema, Tonsillar Exudate, Tonsillar Swelling Neck: Positive for: Normal, Supple Cardiovascular/Chest: Positive for: Regular Rate, Rhythm Respiratory: Positive for: Normal Breath Sounds. Negative for: Wheezing, Respiratory Distress Back: Negative for: Vertebral Tenderness Extremity: Positive for: Normal ROM Neurologic/Psych: Positive for: Alert, Oriented - ECG O2 Sat by Pulse Oximetry: 99 (RA) Pulse Ox Interpretation: Normal Medical Decision Making Medical Decision Making: Initial Impression: Flu-like symptoms Initial Plan: * Motrin 600mg PO Time: 0920 --Patient left before completion of treatment. Scribe Attestation: Documented by Laurie Moncada, acting as a scribe for Yarely Graff PA-C. Provider Scribe Attestation: All medical record entries made by the Scribe were at my direction and personally dictated by me. I have reviewed the chart and agree that the record accurately reflects my personal performance of the history, physical exam, medical decision making, and the department course for this patient. I have also personally directed, reviewed, and agree with the discharge instructions and disposition. Disposition - Clinical Impression Clinical Impression: Influenza-like symptoms - Patient ED Disposition Is Patient to be Admitted: No - Disposition Disposition: Left W/O Treatment (Patient left emergency room before treatment was completed.) Disposition Time: 21:36 Condition: UNKNOWN Forms: [employer] (Turkish)
== END 2018-05-26 21:25 | disposition left against medical advice (07) ==
LOC: H.ER 20:08
DX: J11.1 Influenza due to unidentified influenza virus with other respiratory manifestations (principal); F20.9 Schizophrenia, unspecified; F31.9 Bipolar disorder, unspecified; F41.9 Anxiety disorder, unspecified

== ENCOUNTER 2018-05-31 23:13 | Emergency (ER) | payer MEDICAID ==
[2018-05-31 23:41] VITALS: BP 130/75; PULSE 90; RESP 19; TEMP 98; O2SAT 99
--- NOTE | 2018-06-01 | ED PDOC ---
HPI: Skin/Bite Injury Time Seen by Provider: 05/31/18 23:47 Chief Complaint (Nursing): Abnormal Skin Integrity Chief Complaint (Provider): boils History Per: Patient Additional Complaint(s): 28-year-old male presents with multiple boils to right arm 3 days. Patient states last week he got a tattoo to the same area. He has had mild purulent discharge from boils. No fever or chills. PMD: none Past Medical History Reviewed: Historical Data, Nursing Documentation, Vital Signs Vital Signs: Last Vital Signs Temp 98 F 05/31/18 23:37 Pulse 90 05/31/18 23:37 Resp 19 05/31/18 23:37 BP 130/75 05/31/18 23:37 Pulse Ox 99 05/31/18 23:37 - Medical History PMH: Anxiety, Bipolar Disorder, Depression, Schizophrenia - Surgical History Surgical History: No Surg Hx - Family History Family History: States: Unknown Family Hx - Living Arrangements Living Arrangements: Other (non-domiciled) - Social History Current smoker - smoking cessation education provided: Yes Alcohol: None Drugs: Denies - Immunization History Hx Tetanus Toxoid Vaccination: Yes (UTD) - Home Medications Home Medications: Ambulatory Orders Medication Instructions Recorded traZODone [Desyrel] 50 mg PO HS #30 tab 10/24/17 Penicillin VK [Penicillin VK Tab] 500 mg PO QID 11/19/17 QUEtiapine [SEROquel] 200 mg PO HS 30 Days #30 tab 11/24/17 Sertraline [Zoloft] 25 mg PO DAILY 30 Days #30 tab 11/24/17 Ibuprofen [Motrin] 600 mg PO Q8 PRN #21 tab 04/15/18 Penicillin VK [Penicillin VK Tab] 1 tab PO QID #40 tab 04/15/18 Azithromycin [Zithromax] 250 mg PO DAILY #6 tab 05/01/18 Clindamycin [Cleocin] 300 mg PO TID #21 cap 05/31/18 - Allergies Allergies/Adverse Reactions: Allergies Allergy/AdvReac Type Severity Reaction Status Date / Time No Known Allergies Allergy Verified 05/26/18 20:23 Review of Systems ROS Statement: Except As Marked, All Systems Reviewed And Found Negative Constitutional: Negative for: Fever Skin: Positive for: Other (boils to arm) Physical Exam - Reviewed Nursing Documentation Reviewed: Yes Vital Signs Reviewed: Yes - Physical Exam Appears: Positive for: Well, Non-toxic, No Acute Distress Skin: Positive for: Normal Color Eye Exam: Positive for: Normal appearance Cardiovascular/Chest: Positive for: Regular Rate, Rhythm Respiratory: Positive for: Normal Breath Sounds. Negative for: Respiratory Distress Extremity: Positive for: Other (multiple boils to right forearm) Neurologic/Psych: Positive for: Alert, Oriented - ECG O2 Sat by Pulse Oximetry: 99 Pulse Ox Interpretation: Normal Medical Decision Making Medical Decision Makin28 year old with boils to right arm Plan: PO clindamycin 300 mg given in ED Rx for clindamycin provided. Wound care instructions given. Patient was referred to clinic for follow-up. Disposition - Clinical Impression Clinical Impression: Boil - Patient ED Disposition Is Patient to be Admitted: No Counseled Patient/Family Regarding: Diagnosis, Need For Followup, Rx Given - Disposition Referrals: [facility] [Outside] Disposition: Routine/Home Disposition Time: 23:56 Condition: STABLE Additional Instructions: Take antibiotics as directed. Advil for pain as needed. Wash area daily with soap and water. Do not apply any topical creams or ointments. Follow-up in 2-3 days with clinic. Prescriptions: Clindamycin [Cleocin] 300 mg PO TID #21 cap Instructions: Boil
== END 2018-06-01 00:10 | disposition home or self-care (01) ==
LOC: H.ER 23:13
DX: L02.423 Furuncle of right upper limb (principal)

== ENCOUNTER 2018-06-03 15:31 | Emergency (ER) | payer MEDICAID ==
[2018-06-03 16:26] VITALS: BP 94/54; PULSE 84; RESP 16; TEMP 97.9; O2SAT 98
[2018-06-03] MEDS ORDERED: Tdap Vaccine 0.5 ml Vial (10-64 yrs) IM ONE ×2 (16:31→16:35)
[2018-06-03] MEDS ORDERED: Bacitracin 500 Units/gm Oint Foilpak UD TOP STA (16:31)
--- NOTE | 2018-06-03 16:35 | ED PDOC ---
HPI: Wound Care - HPI Time Seen by Provider: 06/03/18 16:04 Chief Complaint (Nursing): Upper Extremity Problem/Injury Chief Complaint (Provider): Wound check History Per: Patient Exam Limitations: no limitations Current Symptoms Are (Timing): Gone Now Quality Of Symptoms: Draining Additional Complaint(s): 28 year old male with a past medical history of a right arm abscess presents to the ED for wound follow up. Patient reports he was seen here 2x days ago for a right arm abscess sustained after a new tattoo. Patient was discharged with a p rescription for clindamycin which he has been taking 3x times a day. Patient was advised to follow up in 2x days. Patient reports his abscess drained of purulent material this morning. Patient reports overall improvement of symptoms since his previous visit. Patient denies having any complaints. Patient cannot recall last tetanus. Otherwise: (-) fever/chills (-) numbness, (-) other injury. PMD: None Past Medical History Reviewed: Historical Data, Nursing Documentation, Vital Signs Vital Signs: Last Vital Signs Temp 97.9 F 06/03/18 16:00 Pulse 84 06/03/18 16:00 Resp 16 06/03/18 16:00 BP 94/54 L 06/03/18 16:00 Pulse Ox 98 06/03/18 16:00 - Medical History PMH: Anxiety, Bipolar Disorder, Depression, Schizophrenia - Surgical History Surgical History: No Surg Hx - Family History Family History: States: No Known Family Hx - Social History Current smoker - smoking cessation education provided: Yes Alcohol: Other (yes) - Home Medications Home Medications: Ambulatory Orders Medication Instructions Recorded RX: traZODone [Desyrel] 50 mg PO HS #30 tab 10/24/17 RX: Penicillin VK [Penicillin VK 500 mg PO QID 11/19/17 Tab] RX: QUEtiapine [SEROquel] 200 mg PO HS 30 Days #30 tab 11/24/17 RX: Sertraline [Zoloft] 25 mg PO DAILY 30 Days #30 tab 11/24/17 Ibuprofen [Motrin] 600 mg PO Q8 PRN #21 tab 04/15/18 Penicillin VK [Penicillin VK Tab] 1 tab PO QID #40 tab 04/15/18 Azithromycin [Zithromax] 250 mg PO DAILY #6 tab 05/01/18 RX: Clindamycin [Cleocin] 300 mg PO TID #21 cap 05/31/18 RX: Bacitracin Ointment 1 applic TOP BID #1 tube 06/03/18 [Bacitracin] - Allergies Allergies/Adverse Reactions: Allergies Allergy/AdvReac Type Severity Reaction Status Date / Time No Known Allergies Allergy Verified 05/26/18 20:23 Review of Systems ROS Statement: Except As Marked, All Systems Reviewed And Found Negative Skin: Positive for: Other (abscess to right arm s/p tattoo) Physical Exam - Reviewed Nursing Documentation Reviewed: Yes Vital Signs Reviewed: Yes - Physical Exam Comments: GENERAL APPEARANCE: Patient is awake, alert, oriented x 3, resting comfortably, in no acute distress. SKIN: Warm, dry; (-) cyanosis. NECK: Supple, FROM CHEST AND RESPIRATORY: (-) rales, (-) rhonchi, (-) wheezes; breath sounds equal bilaterally. HEART AND CARDIOVASCULAR: (-) irregularity RIGHT ARM: Ventral aspect of mid right forearm: (+) 2x .5cm ruptured pustules, now dry and scabbed (-) evidence of cellulitis, (-) surrounding erythema (-) active draining (-) tenderness (-) swelling, (-) ecchymosis of right forearm (- ) deformity. (-) distal neurovascular deficit, (+) full ROM throughout upper extremity (+) sensation and capillary refill in tact NEURO AND PSYCH: Mental status as above. Gait: steady. Speech: clear. (-) facial asymmetry (-) aphasia - ECG O2 Sat by Pulse Oximetry: 98 (RA) Pulse Ox Interpretation: Normal Medical Decision Making Medical Decision Makin:05 Clinical impression: 28 year old male in the ED for a wound check Plan: * tetanus 0.5 mL IM * bacitracin 1 ea top dressing to wound sites * reevaluation 1654 On re-evaluation, patient reports improvement of symptoms. On exam, patient remains AAOx3, in no acute distress. Lungs clear to auscultation, cardiac RRR, repeat neuro exam shows no focal findings. Vitals stable. Patient educated on wound care. Advised to continue Clindamycin treatment until complete. Lab / Diagnostic results d/w the patient in great detail. Diagnosis of wound check d/w the patient. Based on history, exam and diagnostic results, plan will be for outpatient follow up. Patient instructed to follow-up with pmd / referral provided / the clinic in 1- 2 days without fail. Advised to take medication as prescribed. Return to the emergency room at any time for any new or worsening symptoms. Patient states he fully agrees with and understands discharge instructions. States that he agrees with the plan and disposition. Verbalized and repeated discharge instructions and plan. I have given the patient opportunity to ask any additional questions. Scribe Attestation: Documented by Veronica Junior, acting as a scribe for Veronica Vanessa Provider Scribe Attestation: All medical record entries made by the Scribe were at my direction and personally dictated by me. I have reviewed the chart and agree that the record accurately reflects my personal performance of the history, physical exam, medical decision making, and the department course for this patient. I have also personally directed, reviewed, and agree with the discharge instructions and disposition. Disposition - Clinical Impression Clinical Impression: Abscess, Encounter for wound re-check - Patient ED Disposition Is Patient to be Admitted: No Counseled Patient/Family Regarding: Studies Performed, Diagnosis, Need For Followup, Rx Given - Disposition Referrals: [facility] [Outside] Disposition: Routine/Home Disposition Time: 17:00 Condition: STABLE Additional Instructions: KEEP WOUNDS CLEAN AND DRY. COMPLETE CLINDAMYCIN TREATMENT AND APPLY OINTMENT DIRECTED. The emergency medical care you received today was directed at your acute symptoms. If you were prescribed any medication, please fill it and take as directed. It may take several days for your symptoms to resolve. Return to the Emergency Department if your symptoms worsen, do not improve, or if you have any other problems. Please contact your doctor in 2 days for re-evaluation and follow up / or call one of the physicians/clinics you have been referred to that are listed on the Patient Visit Information form that is included in your discharge packet. Bring any paperwork you were given at discharge with you along with any medications you are taking to your follow up visit. Our treatment cannot replace ongoing medical care by a primary care provider (PCP) outside of the emergency department. Prescriptions: RX: Bacitracin Ointment [Bacitracin] 1 applic TOP BID #1 tube Instructions: Boil, Skin Abscess, Wound Care Forms: [facility] (Icelandic) Print Language: FAROESE - POA Present On Arrival: None
== END 2018-06-03 17:05 | disposition home or self-care (01) ==
LOC: H.ER 15:31
DX: Z48.00 Encounter for change or removal of nonsurgical wound dressing (principal); Z23 Encounter for immunization; F17.200 Nicotine dependence, unspecified, uncomplicated; Z86.59 Personal history of other mental and behavioral disorders

== ENCOUNTER 2018-06-08 23:18 | Inpatient (IN) | payer MEDICAID ==
--- NOTE | 2018-06-09 00:29 | ED PDOC ---
HPI: Psych/Substance Abuse Time Seen by Provider: 06/09/18 00:09 Chief Complaint (Nursing): Psychiatric Evaluation Chief Complaint (Provider): Psychiatric Evaluation History Per: Patient History/Exam Limitations: no limitations Onset/Duration Of Symptoms: Hrs Current Symptoms Are (Timing): Still Present Associated Symptoms: Depression, Suicidal Thoughts Additional Complaint(s): 28 year old male with PMHx of depression presents to the ER for an evaluation of suicidal ideation. Patient reports of calling suicidal line stating he is suicidal and depressed. Patient admits he has suicidal thoughts. He denies any suicidal plans or homicidal ideation. PMD: No Family Provider Past Medical History Reviewed: Historical Data, Nursing Documentation, Vital Signs Vital Signs: Last Vital Signs Temp 98.4 F 06/08/18 23:38 Pulse 94 H 06/08/18 23:38 Resp 16 06/08/18 23:38 BP 131/67 06/08/18 23:38 Pulse Ox 96 06/08/18 23:38 - Medical History PMH: Anxiety, Bipolar Disorder, Depression, Schizophrenia Denies: Diabetes, Hepatitis, HIV, HTN, Chronic Kidney Disease, Seizures, Sexually Transmitted Disease - Family History Family History: States: Unknown Family Hx - Immunization History Hx Tetanus Toxoid Vaccination: Yes (UTD) Hx Influenza Vaccination: Yes Hx Pneumococcal Vaccination: Yes - Home Medications Home Medications: Ambulatory Orders Medication Instructions Recorded RX: traZODone [Desyrel] 50 mg PO HS #30 tab 10/24/17 RX: Penicillin VK [Penicillin VK 500 mg PO QID 11/19/17 Tab] RX: QUEtiapine [SEROquel] 200 mg PO HS 30 Days #30 tab 11/24/17 RX: Sertraline [Zoloft] 25 mg PO DAILY 30 Days #30 tab 11/24/17 Ibuprofen [Motrin] 600 mg PO Q8 PRN #21 tab 04/15/18 Penicillin VK [Penicillin VK Tab] 1 tab PO QID #40 tab 04/15/18 Azithromycin [Zithromax] 250 mg PO DAILY #6 tab 05/01/18 RX: Clindamycin [Cleocin] 300 mg PO TID #21 cap 05/31/18 RX: Bacitracin Ointment 1 applic TOP BID #1 tube 06/03/18 [Bacitracin] - Allergies Allergies/Adverse Reactions: Allergies Allergy/AdvReac Type Severity Reaction Status Date / Time No Known Allergies Allergy Verified 06/08/18 23:57 Review of Systems ROS Statement: Except As Marked, All Systems Reviewed And Found Negative Psych: Positive for: Depression, Suicidal ideation. Negative for: Other (homicidal ideation ) Physical Exam - Reviewed Nursing Documentation Reviewed: Yes Vital Signs Reviewed: Yes - Physical Exam Appears: Positive for: Non-toxic Head Exam: Positive for: ATRAUMATIC, NORMAL INSPECTION, NORMOCEPHALIC Skin: Positive for: Normal Color, Warm, Dry Eye Exam: Positive for: Normal appearance, EOMI, PERRL ENT: Positive for: Normal ENT Inspection Neck: Positive for: Normal, Painless ROM, Supple. Negative for: Decreased ROM Cardiovascular/Chest: Positive for: Regular Rate, Rhythm. Negative for: Murmur Respiratory: Positive for: Normal Breath Sounds. Negative for: Decreased Breath Sounds, Wheezing, Respiratory Distress Gastrointestinal/Abdominal: Positive for: Normal Exam, Soft. Negative for: Tenderness, Guarding, Rebound Back: Positive for: Normal Inspection Extremity: Positive for: Normal ROM. Negative for: Tenderness, Pedal Edema, Deformity Neurologic/Psych: Positive for: Alert, Oriented (x3). Negative for: Motor/Sensory Deficits - Laboratory Results Result Diagrams: 06/09/18 00:30 06/09/18 00:30 - ECG O2 Sat by Pulse Oximetry: 96 (RA) Pulse Ox Interpretation: Normal Medical Decision Making Medical Decision Making: Time: 17 Initial Impression: suicidal ideation Initial Plan: Alcohol Serum BMP Drug Screen Crisis Evaluation CBC w/ Differential Reevaluation Vital signs are stable. Labs reviewed. In my opinion there are no current acute medical conditions that contraindicate the placement of this patient in a psychiatric unit. ----- Scribe Attestation: Documented by Sandra Golden, acting as a scribe for Jim Jung MD. Provider Scribe Attestation: All medical record entries made by the Scribe were at my direction and perso evaristo dictated by me. I have reviewed the chart and agree that the record accurately reflects my personal performance of the history, physical exam, medical decision making, and the department course for this patient. I have also personally directed, reviewed, and agree with the discharge instructions and disposition. Disposition - Clinical Impression Clinical Impression: Depression - Patient ED Disposition Is Patient to be Admitted: Yes Counseled Patient/Family Regarding: Studies Performed, Diagnosis - Disposition Disposition Time: 02:00 Condition: STABLE - Pt Status Changed To: Hospital Disposition Of: Inpatient - Admit Certification Admit to Inpatient:: After my assessment, the patient will require hospitalizat ion for at least two midnights. This is because of the severity of symptoms shown, intensity of services needed, and/or the medical risk in this patient being treated as an outpatient. - POA Present On Arrival: None
[2018-06-09 00:45] LABS: BASO % 0.3 % (0.0-2.0); EOS # 0.1 K/uL (0.0-0.7); EOS % 1.6 % (0.0-4.0); HEMOGLOBIN 13.9 g/dL (12.0-18.0); LYMPH # 2.3 K/uL (1.0-4.3); LYMPH % 39.1 % (20.0-40.0); MEAN CELL VOLUME 83.2 fl (80.0-94.0); MEAN CORPUSCULAR HEMOGLOBIN 28.2 pg (27.0-31.0); MEAN CORPUSCULAR HGB CONC 33.9 g/dL (33.0-37.0); MEAN PLATELET VOLUME 8.5 fl (7.2-11.7); MONO # 0.4 K/uL (0.0-0.8); MONO % 6.9 % (0.0-10.0); NEUT # 3.1 K/uL (1.8-7.0); NEUT % 52.1 % (50.0-75.0); NRBC % 0.1 % (0.0-0.0); RBC 4.9 Mil/uL (4.40-5.90); RED CELL DISTRIBUTION WIDTH 13.1 % (11.5-14.5)
[2018-06-09 00:52] LABS: BLOOD UREA NITROGEN 18 mg/dl (9-20); CALCIUM 9.6 mg/dL (8.4-10.2); GFR NON-AFRICAN AMERICAN > 60
[2018-06-09 04:27] LABS: BARBITURATES, UR NEGATIVE (NEGATIVE); BENZODIAZEPINES, UR NEGATIVE (NEGATIVE); OPIATES, UR NEGATIVE (NEGATIVE); PHENCYCLIDINE, UR POSITIVE (NEGATIVE)
[2018-06-09] MEDS ORDERED: Alum-Mag Hydrox-Simethicone Susp (30 mL) PO PRN (05:19)
[2018-06-09] MEDS ORDERED: Magnesium Hydroxide Susp 30 ml UD PO PRN (05:19)
[2018-06-09] MEDS ORDERED: DiphenhydrAMINE 50 mg/ml Inj IM PRN (05:19)
--- NOTE | 2018-06-09 05:36 | PCM.BM ---
<Russ Jara P - Last Filed: 06/09/18 05:35> Treatment Plan Problems - Problems identified on initial assessmt Hopelessness/Helplessness Date Initiated: 06/09/18 Time Initiated: 05:35 Assessment reference: NA Status: Active Medication nonadherence Date Initiated: 06/09/18 Time Initiated: 05:36 Assessment reference: NA Status: Active Treatment assets and liabiliti Patient Assests: adapts well, cooperative, resourceful, ADL independent, physically healthy, negotiates basic needs, cognitively intact Patient Liabilities: live alone, financial problems, poor support system, substance abuse - Milieu Protocol Maintain good personal hygiene: daily Encourage regular showers, daily Remind patient to perform daily oral care, daily Assist patient to perform ADL's Conduct patient checks and document Observation sheet: Q15 minutes Maintain personal safety: every shift Educate patient to report safety concerns to staff, every shift Monitor environment for contraband/sharps Medication safety: Monitor for expected outcome, potential side effects: every shift, Assess barriers to learning: every shift, Assess readiness for medication education: every shift <Dru Mccarty J - Last Filed: 06/11/18 17:25> Family Contact Family involvement: Famliy/SO not involved Family contact: Patient declines to allow family contact at present Family contact name: Pt denied. Family contacted how many times per week?: 0 - Outside Agency Agency 1 Care involvment: Following patient during stay, Information-sharing Agency contact name: [facility] contact number: [phone] ext. [phone] - Goals for Treatment Patient goals for treatment: Pt reported he would like help elevating and evening out his mood. Discharge/Continuing Care - Education Needs Education Needs: Patient Medication, Patient Diagnosis/Disease Process, Patient Coping Skills, Patient Anger Management skills, Patient Placement options, Patient Community resources, Patient Aftercare Safety Plan - Discharge Discharge Criteria: Tolerates medication w/o severe side effects, Free of Suicidal thoughts, Free of agitation, Reduction of target symptoms Discharge to:: Nursing Home - Treatment Team Participation Discussed with Family/SO: No Was Patient/Family/SO present at Treatment Team Meeting: Yes <Canelo Mojica - Last Filed: 06/12/18 13:15> - Diagnosis (1) Depression Status: Acute Interventions: psychotherapy, pharmacotherapy 06/12/18 13:15
[2018-06-09 07:21] LABS: HDL CHOLESTEROL 40 MG/DL (30-70)
[2018-06-09 07:32] LABS: LDL CHOLESTEROL 98 mg/dL (0-129)
--- NOTE | 2018-06-09 08:25 | RAD ---
Date of service: 06/09/2018 HISTORY: clearance COMPARISON: Frontal chest radiograph 05/01/2018. TECHNIQUE: Chest PA and lateral FINDINGS: LUNGS: No active pulmonary disease. PLEURA: No significant pleural effusion identified. No pneumothorax apparent. CARDIOVASCULAR: No aortic atherosclerotic calcification present. Normal cardiac size. No pulmonary vascular congestion. OSSEOUS STRUCTURES: No significant abnormalities. VISUALIZED UPPER ABDOMEN: Normal. OTHER FINDINGS: None. IMPRESSION: No interval acute cardiopulmonary disease appreciated.
--- NOTE | 2018-06-09 14:54 | CP.PCM.CON ---
History of Present Illness - History of Present Illness History of Present Illness: Reason for Consult: per Hospital Protocol HPI: 28 year old male admitted for suicidal ideation. On Clindamycin for skin infection as outpatient. Will continue. Doing well, no complaints. HD stable. NAD. ROS: Per HPI all other systems reviewed and negative. Past Patient History - Infectious Disease Hx of Infectious Diseases: None - Tetanus Immunizations Tetanus Immunization: Unknown - Past Medical History & Family History Past Medical History?: No - Past Social History Smoking Status: Heavy Smoker > 10 Cigarettes Daily - CARDIAC Hx Cardiac Disorders: No - PULMONARY Hx Respiratory Disorders: No - NEUROLOGICAL HX Cerebrovascular Accident: No Hx Seizures: No - HEENT Hx HEENT Problems: No - RENAL Hx Chronic Kidney Disease: No - ENDOCRINE/METABOLIC Hx Endocrine Disorders: No - HEMATOLOGICAL/ONCOLOGICAL Hx Cancer: No Hx Human Immunodeficiency Virus (HIV): No - INTEGUMENTARY Hx Dermatological Problems: No - MUSCULOSKELETAL/RHEUMATOLOGICAL Hx Musculoskeletal Disorders: No - GASTROINTESTINAL Hx Gastrointestinal Disorders: No - GENITOURINARY/GYNECOLOGICAL Hx Sexually Transmitted Disorders: No - PSYCHIATRIC Hx Psychophysiologic Disorder: Yes - SURGICAL HISTORY Hx Surgeries: No - ANESTHESIA Hx Anesthesia: No Meds Allergies/Adverse Reactions: Allergies Allergy/AdvReac Type Severity Reaction Status Date / Time No Known Allergies Allergy Verified 06/08/18 23:57 - Medications Medications: Current Medications Acetaminophen (Tylenol 325mg Tab) 650 mg PO Q4 PRN PRN Reason: Pain, moderate (4-7) Al Hydrox/Mg Hydrox/Simethicone (Maalox Plus 30 Ml) 30 ml PO Q4 PRN PRN Reason: Dyspepsia Benztropine Mesylate (Cogentin) 1 mg PO HS DEAN Diphenhydramine HCl (Benadryl) 50 mg IM Q6 PRN PRN Reason: Extrapyramidal S/S Unable PO Diphenhydramine HCl (Benadryl) 50 mg PO Q6 PRN PRN Reason: Extrapyramidal Symptoms Diphenhydramine HCl (Benadryl) 50 mg PO HS PRN PRN Reason: Sleep Gabapentin (Neurontin) 100 mg PO TID PRN PRN Reason: Anxiety Haloperidol (Haldol) 5 mg PO Q4 PRN PRN Reason: Agitation Haloperidol (Haldol) 5 mg PO HS DEAN Haloperidol Lactate (Haldol) 5 mg IM Q4 PRN PRN Reason: Agitation, Unable to Take PO Lorazepam (Ativan) 1 mg IM Q6 PRN PRN Reason: Anxiety Magnesium Hydroxide (Milk Of Magnesia) 30 ml PO HS PRN PRN Reason: Constipation Sertraline HCl (Zoloft) 25 mg PO STAT STA Stop: 06/09/18 14:00 Sertraline HCl (Zoloft) 25 mg PO DAILY DEAN Physical Exam - Constitutional Additional comments: GEN: WDWN, ALERT, COOPERATIVE HEENT: NCAT, PERRL, EOMI HEART: +S1+S2, RRR NO MRG LUNG: CTAB, NO WRR ABD: SOFT BSX4 NT ND NO HSM NO MASS EXT: WARM, WELL PERFUSED NEURO: AWAKE, ALERT, REFLEXES NORMAL SKIN: WARM DRY, infection where pt has new tattoo PSYCH: NORMAL MOOD NORMAL AFFECT Results - Vital Signs Recent Vital Signs: Last Vital Signs Temp 97.7 F 06/09/18 09:00 Pulse 58 L 06/09/18 09:00 Resp 18 06/09/18 09:00 BP 104/57 L 06/09/18 09:00 Pulse Ox 100 06/09/18 05:45 - Labs Result Diagrams: 06/09/18 00:30 06/09/18 00:30 Labs: Laboratory Results - last 24 hr 06/09/18 06/09/18 06/09/18 00:30 00:30 03:55 WBC 6.0 RBC 4.90 Hgb 13.9 Hct 40.8 MCV 83.2 MCH 28.2 MCHC 33.9 RDW 13.1 Plt Count 293 MPV 8.5 Neut % (Auto) 52.1 Lymph % (Auto) 39.1 Gates % (Auto) 6.9 Eos % (Auto) 1.6 Baso % (Auto) 0.3 Neut # (Auto) 3.1 Lymph # (Auto) 2.3 Gates # (Auto) 0.4 Eos # (Auto) 0.1 Baso # (Auto) 0.0 Sodium 142 Potassium 3.4 L Chloride 105 Carbon Dioxide 26 Anion Gap 14 BUN 18 Creatinine 0.8 Est GFR ( Amer) > 60 Est GFR (Non-Af Amer) > 60 Random Glucose 102 Hemoglobin A1c Calcium 9.6 Triglycerides Cholesterol LDL Cholesterol Direct HDL Cholesterol Urine Opiates Screen Negative Urine Methadone Screen Negative Ur Barbiturates Screen Negative Ur Phencyclidine Scrn Positive H Ur Amphetamines Screen Negative U Benzodiazepines Scrn Negative U Oth Cocaine Metabols Negative U Cannabinoids Screen Positive H Alcohol, Quantitative < 10 06/09/18 06/09/18 07:11 07:11 WBC RBC Hgb Hct MCV MCH MCHC RDW Plt Count MPV Neut % (Auto) Lymph % (Auto) Gates % (Auto) Eos % (Auto) Baso % (Auto) Neut # (Auto) Lymph # (Auto) Gates # (Auto) Eos # (Auto) Baso # (Auto) Sodium Potassium Chloride Carbon Dioxide Anion Gap BUN Creatinine Est GFR ( Amer) Est GFR (Non-Af Amer) Random Glucose Hemoglobin A1c 5.3 Calcium Triglycerides 66 Cholesterol 157 LDL Cholesterol Direct 98 HDL Cholesterol 40 Urine Opiates Screen Urine Methadone Screen Ur Barbiturates Screen Ur Phencyclidine Scrn Ur Amphetamines Screen U Benzodiazepines Scrn U Oth Cocaine Metabols U Cannabinoids Screen Alcohol, Quantitative Assessment & Plan - Assessment and Plan (Free Text) Plan: Cellulitis Mild continue Clindamycin 7 more days
--- NOTE | 2018-06-09 15:37 | PCM.PSYCH ---
Initial Psychiatric Evaluation - Initial Psychiatric Evaluation Type of Admission: Voluntary Legal Status: Capacity Chief Complaint (in patient's own words): I am having suicidal thoughts History of Present Illness and Precipitating Events: pt is 28 ys old male with previous psychiatric diagnosis of polysubstance use and depression, brought to ER by police after contacting hotline and expressing suicidal ideation pt reported has been increasing ly depressed due to multiple social stressors, including financial difficulties, being homeless, poor social support and loosing his insurance reported poor sleep, poor appetite, lack of motivation, low energy, reported passive suicidal ideation on the unit without active plan, denied command hallucinations , denied homicidal ideation urine toxicology positive for CANNABIS and PCP Current Medications: Active Medications Generic Name Dose Route Start Last Admin Trade Name Freq PRN Reason Stop Dose Admin Acetaminophen 650 mg 06/09/18 05:19 Tylenol 325mg Tab PO Q4 PRN Pain, moderate (4-7) Al Hydrox/Mg Hydrox/Simethicone 30 ml 06/09/18 05:19 Maalox Plus 30 Ml PO Q4 PRN Dyspepsia Benztropine Mesylate 1 mg 06/09/18 22:00 Cogentin PO HS DEAN Clindamycin HCl 300 mg 06/09/18 16:00 Cleocin PO 06/16/18 16:01 Q6 DEAN Protocol Diphenhydramine HCl 50 mg 06/09/18 05:19 Benadryl IM Q6 PRN Extrapyramidal S/S Unable PO Diphenhydramine HCl 50 mg 06/09/18 05:19 Benadryl PO Q6 PRN Extrapyramidal Symptoms Diphenhydramine HCl 50 mg 06/09/18 05:25 Benadryl PO HS PRN Sleep Gabapentin 100 mg 06/09/18 13:58 Neurontin PO TID PRN Anxiety Haloperidol 5 mg 06/09/18 05:19 Haldol PO Q4 PRN Agitation Haloperidol 5 mg 06/09/18 22:00 Haldol PO HS DEAN Haloperidol Lactate 5 mg 06/09/18 05:19 Haldol IM Q4 PRN Agitation, Unable to Take PO Lorazepam 1 mg 06/09/18 10:38 Ativan IM Q6 PRN Anxiety Magnesium Hydroxide 30 ml 06/09/18 05:19 Milk Of Magnesia PO HS PRN Constipation Sertraline HCl 25 mg 06/10/18 09:00 Zoloft PO DAILY DEAN Past Psychiatric History - Past Psychiatric History Explanation of prior treatment: multiple hospitalizations, hx of non compliance History of ETOH/Drug Use: cannabis, pcp Pertinent Medical Hx (Current Medical&Sleep Prob, Allergies): Allergies Allergy/AdvReac Type Severity Reaction Status Date / Time No Known Allergies Allergy Verified 06/08/18 23:57 traZODone [Desyrel] 50 mg PO HS #30 tab 10/24/17 Penicillin VK [Penicillin VK Tab] 500 mg PO QID 11/19/17 QUEtiapine [SEROquel] 200 mg PO HS 30 Days #30 tab 11/24/17 Sertraline [Zoloft] 25 mg PO DAILY 30 Days #30 tab 11/24/17 Ibuprofen [Motrin] 600 mg PO Q8 PRN #21 tab 04/15/18 Penicillin VK [Penicillin VK Tab] 1 tab PO QID #40 tab 04/15/18 Azithromycin [Zithromax] 250 mg PO DAILY #6 tab 05/01/18 Clindamycin [Cleocin] 300 mg PO TID #21 cap 05/31/18 Bacitracin Ointment [Bacitracin] 1 applic TOP BID #1 tube 06/03/18 Mental Status Examination - Personal Presentation Personal Presentation: Looks stated age - Affect Affect: Constricted, Depressed - Motor Activity Motor Activity: Psychomotor Retardation - Reliability in Providing Information Reliability in Providing Information: Poor, due to alteration in thoughts, Poor, due to altered mood - Speech Speech: Relevant - Mood Mood: Depressed, Anxious - Formal Thought Process Formal Thought Process: Circumstantial - Cognitive Functions Abstract Thinking: [place] Judgement: Imparied, as evidence by: Poor judgement, Imparied, as evidence by: Lack of insight into illness - Risk Risk: Suicidal, Diminished functioning - Strength & Assets Inventory Strength & Assets Inventory: Life experience - Limitations Additional comments: homeless DSM 5 DX - DSM 5 DSM 5 Diagnosis: depression pcp abuse cannabis abuse - Recommended/Plan of Treatment Treatment Recommendations and Plan of Treatment: start zoloft 25mg daily start haldol 5mg qhs and cogentin 1mg qhs motivational group and supportive therapy internal medicine consult disposition planning
[2018-06-10 08:26] LABS: T4 6.69 ug/dl (5.5-11.0)
--- NOTE | 2018-06-10 10:24 | PCM.PYCHPN ---
Psychiatric Progress Note - Psychiatric Progress Note Patient seen today, length of contact: Pt evaluated, case discussed w/ team, chart reviewed Patient Chief Complaint: "I'm depressed." Problems Identified/Issues Discussed: Patient continues to report feeling depressed, but denies acute suicidal ideation/plan/intent. He discussed his social stressors including lack of employment and homelessness. He discussed that he was taking Zoloft 100 mg PO Daily in the past, which he found helpful. He reports feeling hopeless and helpless at times, w/ low motivation and poor sleep. He reports that he heard AH yesterday but that he does not hear any today. No adverse effects to medications reported. Medication Change: Yes (Titrate Zoloft, starting tomorrow AM) Medical Record Reviewed: Yes Consults ordered or reviewed: Medicine consult Mental Status Examination - Cognitive Function Orientation: Person, Place, Situation, Time Memory: Intact Attention: WNL Concentration: WNL Association: [facility] Fund of Knowledge: [facility] Decription of patient's judgement and insights: Poor I/J - Mood Mood: Depressed, Anxious - Affect Affect: Constricted, Depressed - Speech Speech: Appropriate - Formal Thought Process Formal Thought Process: Circumstantial Psychotic Thoughts and Behaviors: Denies acute AH/VH/paranoia/delusions - Suicidal Ideation Suicidal Ideation: No - Homicidal Ideation Homicidal Ideation: No Goal/Treatment Plan - Goal/Treatment Plan Need for Continued Stay: Remain at risks for inpatient hospitalization, Severe depression anxiety Progress Toward Problem(s) and Goals/Treatment Plan: Major Depressive Disorder w/ Psychotic Features; PCP and Cannabis Use Disorder -Increase Zoloft, starting tomorrow AM -Continue Haldol and Cogentin -Individual and group therapy -Psychoeducation re: dangers of substance abuse -Medicine consult -Disposition planning
[2018-06-10 12:33] VITALS: O2SAT 96
--- NOTE | 2018-06-11 09:43 | PCM.PYCHPN ---
Psychiatric Progress Note - Psychiatric Progress Note Patient seen today, length of contact: Pt evaluated, case discussed w/ team, chart reviewed Patient Chief Complaint: "I'm depressed." Problems Identified/Issues Discussed: Patient reports that his mood is starting to improve. He thinks the medications are starting to help him. He denies acute psychotic symptoms. He is calmer on interview, with more organized/linear thought process. No adverse effects to medications reported. Medication Change: Yes (Increase Zoloft) Medical Record Reviewed: Yes Consults ordered or reviewed: Medicine consult Mental Status Examination - Cognitive Function Orientation: Person, Place, Situation, Time Memory: Intact Attention: WNL Concentration: WNL Association: WNL Fund of Knowledge: WN Decription of patient's judgement and insights: Poor I/J - Mood Mood: Depressed - Affect Affect: Constricted - Speech Speech: Appropriate - Formal Thought Process Formal Thought Process: Circumstantial Psychotic Thoughts and Behaviors: Denies acute AH/VH/paranoia/delusions - Suicidal Ideation Suicidal Ideation: No - Homicidal Ideation Homicidal Ideation: No Goal/Treatment Plan - Goal/Treatment Plan Need for Continued Stay: Severe depression anxiety Progress Toward Problem(s) and Goals/Treatment Plan: Major Depressive Disorder w/ Psychotic Features; PCP and Cannabis Use Disorder -Increase Zoloft -Continue Haldol and Cogentin -Individual and group therapy -Psychoeducation re: dangers of substance abuse -Medicine consult -Disposition planning
--- NOTE | 2018-06-12 14:02 | PCM.PYCHPN ---
Psychiatric Progress Note - Psychiatric Progress Note Patient seen today, length of contact: Pt evaluated, case discussed w/ team, chart reviewed Patient Chief Complaint: I still feel down and tired Problems Identified/Issues Discussed: pt evaluated, seen in bed , reported continues to feel down with low energy and low motivation, discussed with pt gradual increase in dose of zoloft, motivational therapy provided, discussing effect of substance use on current mental status , encouraged pt to attend groups pt denied command hallucinations, denied suicidal or homicidal ideation Medical Problems: multiple hospitalizations, hx of non compliance DSM 5 Symptoms Update: depression cannabis use disorder PCP use disorder Medication Change: No Medical Record Reviewed: Yes Mental Status Examination - Cognitive Function Orientation: Person, Place, Situation, Time Memory: Intact Attention: WNL Concentration: WNL Association: WNL Fund of Knowledge: WNL - Mood Mood: Depressed - Affect Affect: Constricted - Speech Speech: Appropriate - Formal Thought Process Formal Thought Process: Circumstantial - Suicidal Ideation Suicidal Ideation: No - Homicidal Ideation Homicidal Ideation: No Goal/Treatment Plan - Goal/Treatment Plan Need for Continued Stay: Severe depression anxiety Progress Toward Problem(s) and Goals/Treatment Plan: zoloft 50mg daily haldol 5mg qhs and cogentin 1mg qhs motivational group and supportive therapy disposition planning
[2018-06-12 22:57] VITALS: RESP 18
[2018-06-13 09:10] VITALS: BP 95/37; PULSE 51; TEMP 98.3
--- NOTE | 2018-06-13 12:52 | PCM.PYCHDC ---
Mental Status Examination - Mental Status Examination Orientation: Person, Place, Situation Memory: Intact Mood: Neutral Affect: Broad Speech: Appropriate Attention: WNL Concentration: WNL Association: WNL Fund of Knowledge: WNL Formal Thought Process: No Impairment Description of patient's judgement and insight: partial insight, Psychotic Thoughts and Behaviors: pt denied any current psychotic symptoms, non elicited Suicidal Ideation: No Current Homicidal Ideation?: No Discharge Summary - Discharge Note Reason for Hospitalization: pt is 28 ys old male with previous psychiatric diagnosis of polysubstance use and depression, brought to ER by police after contacting hotline and expressing suicidal ideation pt reported has been increasing ly depressed due to multiple social stressors, including financial difficulties, being homeless, poor social support and loosing his insurance reported poor sleep, poor appetite, lack of motivation, low energy, reported passive suicidal ideation on the unit without active plan, denied command hallucinations , denied homicidal ideation urine toxicology positive for CANNABIS and PCP Consultations:: List each consultation separately and include: 1. Reason for request. 2. Findings. 3. Follow-up Summary of Hospital Course include:: 1. Description of specific treatment plan utilized for patients during their course of treatmen. 2. Summarize the time- course for resolution of acute symptoms and/or regressed behaviors. 3. Describe issues identified and worked on during hospitalization. 4. Describe medication utilized. 5. Describe medical problems identified and treated. 6. Reassessment of suicide risk Summary of Hospital Course: pt on admission was presenting with depressed mood and affect and fixed delusions of telepathy related to PCP use pt was started on haldol , cogentin and zoloft motivational therapy was provided in reference to substance use pt was compliant with therapy, attended groups, no reported side effects of medications on discharge mental status was stable, denied any current suicidal or homicidal ideation , denied perceptual disturbances follow up arranged by social work professor at [facility] [place] outpatient - Diagnosis (1) Depression Current Visit: Yes Status: Acute - Final Diagnosis (DSM 5) Condition upon Discharge: STABLE DSM 5: cannabis abuse PCP abuse depression Disposition: HOME/ ROUTINE Follow-up Treatment Plan: zoloft 50mg daily haldol 5mg qhs and cogentin 1mg qhs motivational group and supportive therapy disposition planning Prescriptions/Medication Reconciliation: Bacitracin Ointment [Bacitracin] 1 applic TOP BID #1 tube Benztropine [Cogentin] 1 mg PO HS 30 Days #30 tab Gabapentin [Neurontin] 100 mg PO TID PRN 30 Days #90 cap PRN Reason: Anxiety Haloperidol [Haldol] 5 mg PO HS 30 Days #30 tab Sertraline [Zoloft] 50 mg PO DAILY 30 Days #30 tab - Antipsychotic Medications Pt discharged on 2 or more routine antipsychotic medications: No
== END 2018-06-13 12:00 | disposition home or self-care (01) | DRG 430 ==
LOC: H.ER 23:18 → H.ERHOLD 06-09 03:15 → H.PSYCH 06-09 04:45
PROVIDERS: ADMIT Psychiatry & Neurology Psychiatry; ATTEND Psychiatry & Neurology Psychiatry
PROC: GZHZZZZ Group Psychotherapy (ICD-10-PCS; principal; 2018-06-09)
PROC: GZ51ZZZ Individual Psychotherapy, Behavioral (ICD-10-PCS; 2018-06-09)
DX: F32.3 Major depressive disorder, single episode, severe with psychotic features (principal); F16.10 Hallucinogen abuse, uncomplicated; L08.9 Local infection of the skin and subcutaneous tissue, unspecified; R45.851 Suicidal ideations; Z59.0 Homelessness; Z79.899 Other long term (current) drug therapy; F17.210 Nicotine dependence, cigarettes, uncomplicated; F12.10 Cannabis abuse, uncomplicated; F20.9 Schizophrenia, unspecified; F31.9 Bipolar disorder, unspecified; Z91.19 Patient's noncompliance with other medical treatment and regimen; F41.9 Anxiety disorder, unspecified; F45.9 Somatoform disorder, unspecified

== ENCOUNTER 2018-06-27 20:16 | Emergency (ER) | payer MEDICAID ==
[2018-06-27 20:23] VITALS: BP 116/54; PULSE 66; RESP 22; TEMP 97.7; O2SAT 100
--- NOTE | 2018-06-27 21:20 | ED PDOC ---
HPI: General Adult Time Seen by Provider: 06/27/18 20:39 Chief Complaint (Nursing): Medical Clearance Chief Complaint (Provider): Abrasion on the left hand History Per: Patient History/Exam Limitations: no limitations Onset/Duration Of Symptoms: Mins Have you had recent travel within the past 21 days to any of the following countries: [place], [place], [place] or [place]?: No Additional Complaint(s): 28 yo male with history of bipolar disorder brought in by [place] [employer] for evaluation. Pt states he has abrasion on the left hand but no pain. Pt states he has history of bipolar disorder and he has been taking his medication as prescribed. Pt denies SI/HI. Pt calm and cooperative in ER. Pt states he has not had symptoms of his bipolar in a long time. Past Medical History Reviewed: Historical Data, Nursing Documentation, Vital Signs Vital Signs: Last Vital Signs Temp 97.7 F 06/27/18 20:19 Pulse 66 06/27/18 20:19 Resp 22 06/27/18 20:19 BP 116/54 L 06/27/18 20:19 Pulse Ox 100 06/27/18 20:19 - Medical History PMH: Anxiety, Bipolar Disorder, Depression, Schizophrenia Denies: Diabetes, Hepatitis, HIV, HTN, Chronic Kidney Disease, Seizures, Sexually Transmitted Disease - Family History Family History: States: Unknown Family Hx - Immunization History Hx Tetanus Toxoid Vaccination: Yes (UTD) Hx Influenza Vaccination: Yes Hx Pneumococcal Vaccination: Yes - Home Medications Home Medications: Ambulatory Orders Medication Instructions Recorded Benztropine [Cogentin] 1 mg PO HS 30 Days #30 tab 06/13/18 Gabapentin [Neurontin] 100 mg PO TID PRN 30 Days #90 cap 06/13/18 Haloperidol [Haldol] 5 mg PO HS 30 Days #30 tab 06/13/18 Sertraline [Zoloft] 50 mg PO DAILY 30 Days #30 tab 06/13/18 Divalproex [Depakote DR] 250 mg PO BID 14 Days #60 tcp 06/20/18 Gabapentin [Neurontin] 300 mg PO BID 14 Days cap 06/20/18 QUEtiapine [Seroquel] 100 mg PO HS 14 Days tab 06/20/18 - Allergies Allergies/Adverse Reactions: Allergies Allergy/AdvReac Type Severity Reaction Status Date / Time No Known Allergies Allergy Verified 06/26/18 19:46 Review of Systems ROS Statement: Except As Marked, All Systems Reviewed And Found Negative Constitutional: Negative for: Fever, Chills Cardiovascular: Negative for: Chest Pain, Palpitations Respiratory: Negative for: Cough, Shortness of Breath Gastrointestinal: Negative for: Nausea, Vomiting, Abdominal Pain Genitourinary Male: Negative for: Dysuria, Frequency Neurological: Negative for: Weakness, Altered Mental Status, Headache Psych: Negative for: Anxiety, Depression, Psychosis, Suicidal ideation Physical Exam - Reviewed Nursing Documentation Reviewed: Yes Vital Signs Reviewed: Yes - Physical Exam Appears: Positive for: Well, Non-toxic, No Acute Distress Head Exam: Positive for: ATRAUMATIC, NORMAL INSPECTION, NORMOCEPHALIC Skin: Positive for: Warm. Negative for: Normal Color (Superficial abrasions on the left dorsal hand without bleeding ) Eye Exam: Positive for: Normal appearance ENT: Positive for: Normal ENT Inspection Neck: Positive for: Normal Cardiovascular/Chest: Positive for: Regular Rate, Rhythm Respiratory: Positive for: Normal Breath Sounds. Negative for: Accessory Muscle Use, Respiratory Distress Back: Positive for: Normal Inspection Extremity: Positive for: Normal ROM Neurologic/Psych: Positive for: Alert, Oriented - ECG O2 Sat by Pulse Oximetry: 100 Disposition - Clinical Impression Clinical Impression: Abrasion - Patient ED Disposition Is Patient to be Admitted: No - Disposition Disposition: Routine/Home Disposition Time: 21:21 Condition: GOOD Additional Instructions: Pt is medically and psychiatrically cleared for incarceration.
== END 2018-06-27 21:31 ==
LOC: H.ER 20:16
DX: S60.512A Abrasion of left hand, initial encounter (principal); Y92.89 Other specified places as the place of occurrence of the external cause; F20.9 Schizophrenia, unspecified; F31.9 Bipolar disorder, unspecified; F41.9 Anxiety disorder, unspecified

== ENCOUNTER 2018-06-29 20:29 | Inpatient (IN) | payer MEDICAID ==
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
[2018-06-29 22:09] LABS: BASO % 0.6 % (0.0-2.0); EOS # 0.1 K/uL (0.0-0.7); EOS % 1.3 % (0.0-4.0); HEMOGLOBIN 14.6 g/dL (12.0-18.0); MEAN CORPUSCULAR HEMOGLOBIN 28.2 pg (27.0-31.0); MEAN CORPUSCULAR HGB CONC 33.5 g/dL (33.0-37.0); MEAN PLATELET VOLUME 9.1 fl (7.2-11.7); MONO # 0.5 K/uL (0.0-0.8); MONO % 7.9 % (0.0-10.0); NEUT % 60.2 % (50.0-75.0); NRBC % 0.2 % (0.0-0.0); RBC 5.2 Mil/uL (4.40-5.90); RED CELL DISTRIBUTION WIDTH 13.7 % (11.5-14.5); WHITE BLOOD COUNT 6.6 K/uL (4.8-10.8)
[2018-06-29 22:56] LABS: URINE BACTERIA RARE (<OCC); URINE BILIRUBIN NEGATIVE (NEGATIVE); URINE BLOOD NEGATIVE (NEGATIVE); URINE CLARITY SLIGHTY-CLOUDY (Clear); URINE COLOR YELLOW (YELLOW); URINE GLUCOSE (UA) NEG (Normal); URINE LEUKOCYTE ESTERASE NEG Leu/uL (Negative); URINE PROTEIN NEGATIVE (NEGATIVE); URINE UROBILINOGEN 0.2-1.0 mg/dL (0.2-1.0)
[2018-06-29 23:05] LABS: ALB/GLOB RATIO 1.2 (1.0-2.1); ALBUMIN 4.9 g/dL (3.5-5.0); ALT/SGPT 35 U/L (21-72); AST/SGOT 27 U/L (17-59); BLOOD UREA NITROGEN 16 mg/dl (9-20); GFR NON-AFRICAN AMERICAN > 60
[2018-06-29 23:22] LABS: BARBITURATES, UR NEGATIVE (NEGATIVE); BENZODIAZEPINES, UR NEGATIVE (NEGATIVE); OPIATES, UR NEGATIVE (NEGATIVE); PHENCYCLIDINE, UR POSITIVE (NEGATIVE)
[2018-06-29 23:32] VITALS: O2SAT 99
[2018-06-30] MEDS ORDERED: Alum-Mag Hydrox-Simethicone Susp (30 mL) PO PRN (00:29)
[2018-06-30] MEDS ORDERED: Magnesium Hydroxide Susp 30 ml UD PO PRN (00:29)
[2018-06-30] MEDS ORDERED: DiphenhydrAMINE 50 mg/ml Inj IM PRN (00:29)
--- NOTE | 2018-06-30 00:50 | PCM.BM ---
Treatment Plan Problems - Problems identified on initial assessmt Hopelessness/Helplessness Date Initiated: 06/30/18 Time Initiated: 00:48 Assessment reference: NA Status: Active Treatment assets and liabiliti Patient Assests: adapts well, cooperative, resourceful, ADL independent, physically healthy, negotiates basic needs, cognitively intact
--- NOTE | 2018-06-30 01:07 | PCM.BM ---
<Roxana Meraz - Last Filed: 06/30/18 01:05> Treatment Plan Problems - Problems identified on initial assessmt Homicidal ideation Date Initiated: 06/30/18 Time Initiated: 01:05 Assessment reference: NA Status: Active Ineffective coping Date Initiated: 06/30/18 Time Initiated: 01:05 Assessment reference: NA Status: Active Self care Deficit Date Initiated: 06/30/18 Time Initiated: 01:06 Assessment reference: NA Status: Active activity Intolerance Date Initiated: 06/30/18 Time Initiated: 01:06 Assessment reference: NA Status: Active Treatment assets and liabiliti Patient Assests: adapts well, cooperative, resourceful, ADL independent, physi mirlande healthy, negotiates basic needs, cognitively intact Patient Liabilities: financial problems, poor support system, substance abuse - Milieu Protocol Maintain good personal hygiene: daily Encourage regular showers, daily Remind patient to perform daily oral care, daily Assist patient to perform ADL's Conduct patient checks and document Observation sheet: Q15 minutes Maintain personal safety: every shift Educate patient to report safety concerns to staff, every shift Monitor environment for contraband/sharps Medication safety: Monitor for expected outcome, potential side effects: every shift, Assess barriers to learning: every shift, Assess readiness for medication education: every shift <Dru Mccarty J - Last Filed: 06/30/18 16:42> Treatment Plan Problems - Problems identified on initial assessmt Homicidal ideation Date Initiated: 06/30/18 Time Initiated: 01:05 Assessment reference: NA Status: Active Ineffective coping Date Initiated: 06/30/18 Time Initiated: 01:05 Assessment reference: NA Status: Active Self care Deficit Date Initiated: 06/30/18 Time Initiated: 01:06 Assessment reference: NA Status: Active activity Intolerance Date Initiated: 06/30/18 Time Initiated: 01:06 Assessment reference: NA Status: Active Family Contact Family involvement: Famliy/SO not involved Family contact: Patient declines to allow family contact at present Family contact name: Pt declined. - Outside Agency Agency 1 Care involvment: Following patient during stay, Information-sharing Agency contact name: [facility] Agency contact number: [phone] - Goals for Treatment Patient goals for treatment: Pt offered no goals at this time. <Badr,Amel A - Last Filed: 07/04/18 12:15> Treatment Plan Problems - Problems identified on initial assessmt Homicidal ideation Date Initiated: 06/30/18 Time Initiated: 01:05 Assessment reference: NA Status: Active Ineffective coping Date Initiated: 06/30/18 Time Initiated: 01:05 Assessment reference: NA Status: Active Self care Deficit Date Initiated: 06/30/18 Time Initiated: 01:06 Assessment reference: NA Status: Active activity Intolerance Date Initiated: 06/30/18 Time Initiated: 01:06 Assessment reference: NA Status: Active - Diagnosis (1) PCP abuse Status: Acute Interventions: motivational therapy 07/04/18 12:15
[2018-06-30 08:18] LABS: T4 7.49 ug/dl (5.5-11.0)
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
[2018-07-01] MEDS ORDERED: Influenza Vaccine (5 YR UP)/PF 60 MCG/0.5 ML SYR IM ONE (09:00)
--- NOTE | 2018-07-01 10:58 | PCM.PSYCH ---
Initial Psychiatric Evaluation - Initial Psychiatric Evaluation Type of Admission: Voluntary Legal Status: Capacity Chief Complaint (in patient's own words): I have suicidal thoughts History of Present Illness and Precipitating Events: pt is 28 ys old male with previous psychuatric diagnosis of polysubstance use and biopolar disorder presented to ER having suicidal thoughts to jump infromt of the train, pt non compliant with medications or follow up, feeling depressed due to financial difficulties and being homeless . relapsed on cannabis and PCP started experiencing suicidal thoughts pt reported poor sleep, poor energy, non command auditory hallucinations Current Medications: Active Medications Generic Name Dose Route Start Last Admin Trade Name Freq PRN Reason Stop Dose Admin Acetaminophen 650 mg 06/30/18 00:29 Tylenol 325mg Tab PO Q4 PRN pain 4-7 Al Hydrox/Mg Hydrox/Simethicone 30 ml 06/30/18 00:29 Maalox Plus 30 Ml PO Q4 PRN Dyspepsia Diphenhydramine HCl 50 mg 06/30/18 00:29 Benadryl IM Q6 PRN Extrapyramidal S/S Unable PO Diphenhydramine HCl 50 mg 06/30/18 00:29 Benadryl PO Q6 PRN Extrapyramidal Symptoms Diphenhydramine HCl 50 mg 06/30/18 01:12 06/30/18 01:21 Benadryl PO 50 mg HS PRN Administration Sleep Gabapentin 100 mg 06/30/18 13:00 Neurontin PO TID DEAN Haloperidol 5 mg 06/30/18 00:29 Haldol PO Q4 PRN Agitation Haloperidol Lactate 5 mg 06/30/18 00:29 Haldol IM Q4 PRN Agitation, Unable to Take PO Lorazepam 1 mg 06/30/18 01:47 Ativan PO Q8 PRN Agitation Magnesium Hydroxide 30 ml 06/30/18 00:29 Milk Of Magnesia PO HS PRN Constipation Quetiapine Fumarate 100 mg 06/30/18 22:00 Seroquel PO HS DEAN Sertraline HCl 50 mg 07/01/18 09:00 Zoloft PO DAILY DEAN Past Psychiatric History - Past Psychiatric History Explanation of prior treatment: multiple hospitalizations, hx of non compliance History of ETOH/Drug Use: PCP, CANNABIS Pertinent Medical Hx (Current Medical&Sleep Prob, Allergies): Allergies Allergy/AdvReac Type Severity Reaction Status Date / Time No Known Allergies Allergy Verified 06/29/18 20:38 Sertraline [Zoloft] 50 mg PO DAILY 30 Days #30 tab 06/13/18 Mental Status Examination - Personal Presentation Personal Presentation: Looks stated age - Affect Affect: Constricted, Depressed - Reliability in Providing Information Reliability in Providing Information: Fair - Speech Speech: Relevant - Mood Mood: Depressed, Anxious - Formal Thought Process Formal Thought Process: Hallucinations, Circumstantial - Hallucinations/Delusions Hallucinations: Auditory - Cognitive Functions Orientation: Person, Place Sensorium: Alert Attention/Concentration: Attentive - Risk Risk: Suicidal, Diminished functioning - Strength & Assets Inventory Strength & Assets Inventory: Life experience - Limitations Additional comments: non compliance DSM 5 DX - DSM 5 DSM 5 Diagnosis: bipolar disorder depressed pcp abuse cannabis abuse - Recommended/Plan of Treatment Treatment Recommendations and Plan of Treatment: ZOLOFT 50MG DAILY SEROQUEL 100MG QHS CBT, MOTIVATIONAL AND GROUP THERAPY
--- NOTE | 2018-07-01 11:05 | PCM.PYCHPN ---
Psychiatric Progress Note - Psychiatric Progress Note Patient seen today, length of contact: PT EVALUATED DISCUSSED WITH TIME CHART REVIEWED Patient Chief Complaint: I feel tired and depressed Problems Identified/Issues Discussed: pt evaluated, unkempt, depressed mood and affect , discussed with pt gradual increase in dose of zoloft, no reported side effects, motivational therapy provided in reference to PCP abuse, pt denied command hallucinations, denied S/HI Medical Problems: multiple hospitalizations, hx of non compliance DSM 5 Symptoms Update: MAJOR DEPRESSION PCP ABUSE CANNABIS ABUSE Medication Change: No Medical Record Reviewed: Yes Mental Status Examination - Cognitive Function Orientation: Person, Place Memory: Intact Attention: WNL Concentration: Poor Association: WNL Fund of Knowledge: Poor Decription of patient's judgement and insights: POOR INSIGHT AND JUDGMENT - Mood Mood: Depressed, Anxious - Affect Affect: Constricted, Depressed - Formal Thought Process Formal Thought Process: Hallucinations, Circumstantial - Suicidal Ideation Suicidal Ideation: No - Homicidal Ideation Homicidal Ideation: No Goal/Treatment Plan - Goal/Treatment Plan Need for Continued Stay: Severe depression anxiety, Discharge may exacerbated symptoms Progress Toward Problem(s) and Goals/Treatment Plan: ZOLOFT 50MG DAILY/ INCREASE GRADUALLY SEROQUEL 100MG QHS CBT, MOTIVATIONAL AND GROUP THERAPY
--- NOTE | 2018-07-02 13:11 | PCM.PYCHPN ---
Psychiatric Progress Note - Psychiatric Progress Note Patient seen today, length of contact: PT EVALUATED DISCUSSED WITH TIME CHART REVIEWED Patient Chief Complaint: I am anxious Problems Identified/Issues Discussed: pt evaluated, reported less depressed, but continues to feel anxious , discussed with pt gradual increase in dose of neurontin, no reported side effects, motivational therapy provided in reference to PCP abuse, pt denied command hallucinations, denied S/HI Medical Problems: multiple hospitalizations, hx of non compliance DSM 5 Symptoms Update: bipolar disorder depressed Medication Change: Yes (increase neurontin) Medical Record Reviewed: Yes Mental Status Examination - Cognitive Function Orientation: Person, Place Memory: Intact Attention: WNL Concentration: Poor Association: WNL Fund of Knowledge: Poor Decription of patient's judgement and insights: POOR INSIGHT AND JUDGMENT - Mood Mood: Depressed, Anxious - Affect Affect: Constricted, Depressed - Formal Thought Process Formal Thought Process: Hallucinations, Circumstantial - Suicidal Ideation Suicidal Ideation: No - Homicidal Ideation Homicidal Ideation: No Goal/Treatment Plan - Goal/Treatment Plan Need for Continued Stay: Severe depression anxiety, Discharge may exacerbated symptoms Progress Toward Problem(s) and Goals/Treatment Plan: ZOLOFT 50MG DAILY/ INCREASE GRADUALLY INCREASE NEURONTIN 200MG TID SEROQUEL 100MG QHS CBT, MOTIVATIONAL AND GROUP THERAPY
--- NOTE | 2018-07-03 14:51 | PCM.PYCHPN ---
Psychiatric Progress Note - Psychiatric Progress Note Patient seen today, length of contact: PT EVALUATED DISCUSSED WITH TIME CHART REVIEWED Patient Chief Complaint: I am feeling better Problems Identified/Issues Discussed: pt evaluated, reported less depressed, feels less anxious with the increase in dose of neurontin, no reported side effects, motivational therapy provided in reference to PCP abuse, pt denied command hallucinations, denied S/HI Medical Problems: multiple hospitalizations, hx of non compliance Medication Change: No Medical Record Reviewed: Yes Mental Status Examination - Cognitive Function Orientation: Person, Place Memory: Intact Attention: WNL Concentration: Poor Association: WNL Fund of Knowledge: Poor Decription of patient's judgement and insights: POOR INSIGHT AND JUDGMENT - Mood Mood: Depressed, Anxious - Affect Affect: Constricted, Depressed - Formal Thought Process Formal Thought Process: Hallucinations, Circumstantial - Suicidal Ideation Suicidal Ideation: No - Homicidal Ideation Homicidal Ideation: No Goal/Treatment Plan - Goal/Treatment Plan Need for Continued Stay: Severe depression anxiety, Discharge may exacerbated symptoms Progress Toward Problem(s) and Goals/Treatment Plan: ZOLOFT 50MG DAILY/ NEURONTIN 200MG TID SEROQUEL 100MG QHS CBT, MOTIVATIONAL AND GROUP THERAPY
[2018-07-04 09:08] VITALS: BP 126/60; PULSE 61; RESP 16; TEMP 97.5
--- NOTE | 2018-07-04 12:22 | PCM.PYCHDC ---
Mental Status Examination - Mental Status Examination Orientation: Person, Place, Situation Memory: Intact Mood: Neutral Affect: Broad Speech: Appropriate Attention: WNL Concentration: WNL Association: WNL Fund of Knowledge: WNL Formal Thought Process: No Impairment Description of patient's judgement and insight: PARTIAL INSIGHT AND POOR JUDGMENT Psychotic Thoughts and Behaviors: pt on discharge denied perceptual disturbances, non elicited Suicidal Ideation: No Current Homicidal Ideation?: No Discharge Summary - Discharge Note Reason for Hospitalization: pt is 28 ys old male with previous psychuatric diagnosis of polysubstance use and biopolar disorder presented to ER having suicidal thoughts to jump infromt of the train, pt non compliant with medications or follow up, feeling depressed due to financial difficulties and being homeless . relapsed on cannabis and PCP started experiencing suicidal thoughts pt reported poor sleep, poor energy, non command auditory hallucinations Consultations:: List each consultation separately and include: 1. Reason for request. 2. Findings. 3. Follow-up Summary of Hospital Course include:: 1. Description of specific treatment plan utilized for patients during their course of treatmen. 2. Summarize the time- course for resolution of acute symptoms and/or regressed behaviors. 3. Describe issues identified and worked on during hospitalization. 4. Describe medication utilized. 5. Describe medical problems identified and treated. 6. Reassessment of suicide risk Summary of Hospital Course: pt on admission presented with depressed mood and affect, overvalued ideas and anxiety pt was placed on zoloft 50mg and neurontin and seroquel pt was compliant with treatment , attended groups, no reported side effects of medications, motivational therapy provided in reference to substance abuse on discharge pt mental status was stable, denied suicidal or homicidal ideation, denied perceptual disturbances - Diagnosis (1) PCP abuse Status: Acute - Final Diagnosis (DSM 5) Condition upon Discharge: STABLE DSM 5: bipolar I disorder PCP ABUSE Disposition: HOME/ ROUTINE Prescriptions/Medication Reconciliation: RX: Gabapentin [Neurontin] 200 mg PO TID 30 Days #90 cap RX: QUEtiapine [Seroquel] 100 mg PO HS 30 Days #30 tab RX: Sertraline [Zoloft] 50 mg PO DAILY 30 Days #30 tab - Antipsychotic Medications Pt discharged on 2 or more routine antipsychotic medications: No
== END 2018-07-04 11:14 | disposition home or self-care (01) | DRG 753 ==
LOC: H.ER 20:29 → H.ERHOLD 23:26 → H.PSYCH 06-30 00:24
PROVIDERS: ADMIT Psychiatry & Neurology Psychiatry; ATTEND Psychiatry & Neurology Psychiatry
PROC: GZHZZZZ Group Psychotherapy (ICD-10-PCS; principal; 2018-06-29)
PROC: GZ58ZZZ Individual Psychotherapy, Cognitive-Behavioral (ICD-10-PCS; 2018-06-29)
PROC: HZ57ZZZ Individual Psychotherapy for Substance Abuse Treatment, Motivational Enhancement (ICD-10-PCS; 2018-06-29)
PROC: 3E02340 Introduction of Influenza Vaccine into Muscle, Percutaneous Approach (ICD-10-PCS; 2018-07-01)
DX: F31.9 Bipolar disorder, unspecified (principal); R45.851 Suicidal ideations; Z91.14 Patient's other noncompliance with medication regimen; F16.10 Hallucinogen abuse, uncomplicated; F12.10 Cannabis abuse, uncomplicated; Z59.0 Homelessness; Z91.19 Patient's noncompliance with other medical treatment and regimen; Z23 Encounter for immunization; F17.210 Nicotine dependence, cigarettes, uncomplicated; Z59.9 Problem related to housing and economic circumstances, unspecified

== ENCOUNTER 2018-07-11 11:39 | Emergency (ER) | payer MEDICAID ==
[2018-07-11 12:07] VITALS: BP 122/64; PULSE 97; RESP 18; TEMP 99.5; O2SAT 98; BMI 21.2
--- NOTE | 2018-07-11 13:35 | ED PDOC ---
HPI: Influenza Time Seen by Provider: 07/11/18 12:37 Chief Complaint: Flu-like Symptoms Chief Complaint (Provider): bodyaches, sorethroat History Per: Patient Exam Limitations: no limitations Have you had recent travel within the past 21 days to any of: No Additional complaint(s):: Pt. is a 28 y/o Male who reports bodyaches and tactile fever starting last night. He is tolerating po. Also complains of mild sorethroat. Past Medical History Reviewed: Historical Data, Nursing Documentation, Vital Signs Vital Signs: Last Vital Signs Temp 99.5 F 07/11/18 12:20 Pulse 97 H 07/11/18 12:20 Resp 18 07/11/18 12:20 BP 122/64 07/11/18 12:20 Pulse Ox 98 07/11/18 12:20 - Medical History PMH: Anxiety, Bipolar Disorder, Depression, Schizophrenia Denies: Diabetes, Hepatitis, HIV, HTN, Chronic Kidney Disease, Seizures, Sexually Transmitted Disease - Family History Family History: States: Unknown Family Hx - Social History Current smoker - smoking cessation education provided: Yes - Immunization History Hx Tetanus Toxoid Vaccination: Yes (UTD) Hx Influenza Vaccination: Yes Hx Pneumococcal Vaccination: Yes - Home Medications Home Medications: Ambulatory Orders Medication Instructions Recorded Gabapentin [Neurontin] 200 mg PO TID 30 Days #90 cap 07/04/18 QUEtiapine [Seroquel] 100 mg PO HS 30 Days #30 tab 07/04/18 Sertraline [Zoloft] 50 mg PO DAILY 30 Days #30 tab 07/04/18 Amoxicillin 875 mg PO BID #20 tablet 07/11/18 Ibuprofen [Motrin Tab] 600 mg PO TID PRN #15 tab 07/11/18 - Allergies Allergies/Adverse Reactions: Allergies Allergy/AdvReac Type Severity Reaction Status Date / Time No Known Allergies Allergy Verified 06/29/18 20:38 Review of Systems ROS Statement: Except As Marked, All Systems Reviewed And Found Negative Constitutional: Negative for: Chills, Sweats ENT: Positive for: Throat Pain. Negative for: Ear Pain Physical Exam - Reviewed Nursing Documentation Reviewed: Yes Vital Signs Reviewed: Yes - Physical Exam Appears: Positive for: Well, Non-toxic Skin: Positive for: Normal Color, Warm, Dry Eye Exam: Positive for: Normal appearance ENT: Positive for: Pharynx Is (erythematous), Tonsillar Swelling (bilateral tonsillar swelling and erythema with mild exudate, (-) uvular deviation, (-) trismus.) Neck: Positive for: Normal Cardiovascular/Chest: Positive for: Regular Rate, Rhythm Respiratory: Positive for: Normal Breath Sounds Lymphatic: Positive for: Normal Exam. Negative for: Adenopathy Medical Decision Making Medical Decision Making: Rapid strep ordered Motrin po given rapid strep (+) pt. well appearing, tolerating po, no evidence of MECHANICAL TECH, no distress. Rx. amox - ECG O2 Sat by Pulse Oximetry: 98 Disposition - Clinical Impression Clinical Impression: Strep pharyngitis - Patient ED Disposition Is Patient to be Admitted: No Counseled Patient/Family Regarding: Studies Performed, Diagnosis, Need For Followup, Rx Given - Disposition Referrals: LTAC[facility] [Outside] Disposition: Routine/Home Disposition Time: 14:46 Condition: IMPROVED Prescriptions: Amoxicillin 875 mg PO BID #20 tablet Ibuprofen [Motrin Tab] 600 mg PO TID PRN #15 tab PRN Reason: Pain, Moderate (4-7) Instructions: Strep Throat (DC) Forms: [employer] (Thai)
== END 2018-07-11 15:00 | disposition home or self-care (01) ==
LOC: H.ER 11:39
DX: J02.0 Streptococcal pharyngitis (principal); F17.200 Nicotine dependence, unspecified, uncomplicated

== ENCOUNTER 2018-09-24 09:36 | Emergency (ER) | payer MEDICAID ==
[2018-09-24 09:37] VITALS: BMI 21.9
[2018-09-24 09:49] VITALS: TEMP 96
--- NOTE | 2018-09-24 10:53 | ED PDOC ---
HPI: General Adult Time Seen by Provider: 09/24/18 09:47 Chief Complaint (Nursing): Lower Extremity Problem/Injury Chief Complaint (Provider): Bodyaches History Per: Patient History/Exam Limitations: no limitations Additional Complaint(s): Pt reports generalized bodyaches X 1 week, relieved with Motrin and Tramadol at home but ran out, requesting refills for both. Pt was in ICU [address] [facility] for a month s/p drug OD, discharged to rehab for muscle deterioration, has been having pain since then. Past Medical History Reviewed: Nursing Documentation, Vital Signs Vital Signs: Last Vital Signs Temp 96 F L 09/24/18 09:46 Pulse 72 09/24/18 09:46 Resp 20 09/24/18 09:46 BP 123/79 09/24/18 09:46 Pulse Ox 98 09/24/18 09:46 - Medical History PMH: Anxiety, Bipolar Disorder, Depression, Schizophrenia Denies: Diabetes, Hepatitis, HIV, HTN, Chronic Kidney Disease, Seizures, Sexually Transmitted Disease - Family History Family History: States: Unknown Family Hx - Immunization History Hx Tetanus Toxoid Vaccination: Yes (UTD) Hx Influenza Vaccination: Yes Hx Pneumococcal Vaccination: Yes - Home Medications Home Medications: Ambulatory Orders Medication Instructions Recorded Gabapentin [Neurontin] 200 mg PO TID 30 Days #90 cap 07/04/18 QUEtiapine [Seroquel] 100 mg PO HS 30 Days #30 tab 07/04/18 Sertraline [Zoloft] 50 mg PO DAILY 30 Days #30 tab 07/04/18 Amoxicillin 875 mg PO BID #20 tablet 07/11/18 Ibuprofen [Motrin Tab] 600 mg PO TID PRN #15 tab 07/11/18 Ibuprofen [Motrin] 600 mg PO Q6H PRN #20 tab 09/24/18 - Allergies Allergies/Adverse Reactions: Allergies Allergy/AdvReac Type Severity Reaction Status Date / Time No Known Allergies Allergy Verified 06/29/18 20:38 Review of Systems Constitutional: Negative for: Fever, Chills Cardiovascular: Negative for: Chest Pain Respiratory: Negative for: Cough, Shortness of Breath Gastrointestinal: Negative for: Abdominal Pain Skin: Negative for: Rash, Lesions Neurological: Negative for: Headache, Dizziness Physical Exam - Reviewed Nursing Documentation Reviewed: Yes Vital Signs Reviewed: Yes - Physical Exam Appears: Positive for: Well, No Acute Distress Head Exam: Negative for: ATRAUMATIC (1 cm circular abrasion posterior scalp (old), no induration, no discharge) Skin: Positive for: Normal Color, Warm, Dry Eye Exam: Positive for: Normal appearance, EOMI, PERRL Neck: Positive for: Normal, Painless ROM, Supple Cardiovascular/Chest: Positive for: Regular Rate, Rhythm Respiratory: Positive for: Normal Breath Sounds. 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 Negative for: Motor/Sensory Deficits - Laboratory Results Result Diagrams: 09/24/18 10:50 09/24/18 10:50 - ECG O2 Sat by Pulse Oximetry: 98 Medical Decision Making Medical Decision Makin yo male with myalgias. - labs - Motrin Disposition - Clinical Impression Clinical Impression: Myalgia - Disposition Referrals: [facility] [Outside] Disposition: Routine/Home Disposition Time: 11:33 Condition: STABLE Prescriptions: Ibuprofen [Motrin] 600 mg PO Q6H PRN #20 tab PRN Reason: Pain, Moderate (4-7) Instructions: Muscle and Bone Pain (DC) Forms: [facility] (Bulgarian)
[2018-09-24 11:03] LABS: BASO # 0.1 K/uL (0.0-0.2); BASO % 0.9 % (0.0-2.0); EOS # 0.2 K/uL (0.0-0.7); HEMOGLOBIN 10.7 g/dL (12.0-18.0); LYMPH # 2.2 K/uL (1.0-4.3); LYMPH % 35.6 % (20.0-40.0); MEAN CELL VOLUME 85.8 fl (80.0-94.0); MEAN CORPUSCULAR HEMOGLOBIN 27.6 pg (27.0-31.0); MEAN CORPUSCULAR HGB CONC 32.2 g/dL (33.0-37.0); MEAN PLATELET VOLUME 8.2 fl (7.2-11.7); MONO # 0.6 K/uL (0.0-0.8); MONO % 9.5 % (0.0-10.0); NEUT # 3.1 K/uL (1.8-7.0); NRBC % 0.1 % (0.0-0.0); RBC 3.87 Mil/uL (4.40-5.90); RED CELL DISTRIBUTION WIDTH 17.5 % (11.5-14.5); WHITE BLOOD COUNT 6.1 K/uL (4.8-10.8)
[2018-09-24 11:11] LABS: SQUAMOUS EPITHIAL < 1 /hpf (0-5); URINE BILIRUBIN NEGATIVE (NEGATIVE); URINE BLOOD NEGATIVE (NEGATIVE); URINE CLARITY SLIGHTY-CLOUDY (Clear); URINE COLOR YELLOW (YELLOW); URINE GLUCOSE (UA) NEG (NEGATIVE); URINE LEUKOCYTE ESTERASE NEG Leu/uL (Negative); URINE PROTEIN NEGATIVE (NEGATIVE); URINE UROBILINOGEN 0.2-1.0 mg/dL (0.2-1.0)
[2018-09-24 11:18] LABS: ALB/GLOB RATIO 1.1 (1.0-2.1); ALBUMIN 3.8 g/dL (3.5-5.0); ALT/SGPT 39 U/L (21-72); AST/SGOT 40 U/L (17-59); BLOOD UREA NITROGEN 21 mg/dl (9-20); CALCIUM 9.4 mg/dL (8.4-10.2); GFR NON-AFRICAN AMERICAN > 60
[2018-09-24 11:29] LABS: BARBITURATES, UR NEGATIVE (NEGATIVE); BENZODIAZEPINES, UR NEGATIVE (NEGATIVE); OPIATES, UR NEGATIVE (NEGATIVE); PHENCYCLIDINE, UR NEGATIVE (NEGATIVE)
[2018-09-24 12:33] VITALS: BP 120/74; PULSE 76; RESP 18
[2018-09-25 15:58] VITALS: O2SAT 98
== END 2018-09-24 12:30 | disposition home or self-care (01) ==
LOC: H.ER 09:36
DX: M79.10 Myalgia, unspecified site (principal); Z86.59 Personal history of other mental and behavioral disorders

== ENCOUNTER 2018-10-08 17:20 | Emergency (ER) | payer MEDICAID ==
[2018-10-08 17:20] VITALS: BMI 21.9
[2018-10-08 17:37] VITALS: BP 121/76; PULSE 88; RESP 18; TEMP 98.1; O2SAT 98
--- NOTE | 2018-10-08 17:57 | ED PDOC ---
HPI: Wound Care - HPI Time Seen by Provider: 10/08/18 17:35 Chief Complaint (Nursing): Wound Check Chief Complaint (Provider): Wound check History Per: Patient Exam Limitations: no limitations Onset/Duration Of Symptoms: Days (several weeks, patient is unsure) Current Symptoms Are (Timing): Still Present Location Of Injury: Posterior: Head Severity: Moderate Additional Complaint(s): 28 year old male with no pertinent past medical history presents to the ED for an evaluation of an ongoing wound (with discharge) to the back of his head. Patient states that several weeks ago, he unknowingly bought crystal meth, smoked it, overdosed, and was admitted to [facility]. Patient reports having the kaleb oing wound to the back of his head status post [facility] stay. Patient has been seen intermittently in the ED for this complaint and has been prescribed topical creams with no resolution of symptoms. Patient denies having any other complaints. PMD: None provided Past Medical History Reviewed: Historical Data, Nursing Documentation, Vital Signs Vital Signs: Last Vital Signs Temp 98.1 F 10/08/18 17:35 Pulse 88 10/08/18 17:35 Resp 18 10/08/18 17:35 BP 121/76 10/08/18 17:35 Pulse Ox 98 10/08/18 17:35 QUYEN Report Viewed: Yes - Medical History PMH: Anxiety, Bipolar Disorder, Depression, Schizophrenia Denies: Diabetes, Hepatitis, HIV, HTN, Chronic Kidney Disease, Seizures, Sexually Transmitted Disease - Family History Family History: States: No Known Family Hx - Social History Current smoker - smoking cessation education provided: No Alcohol: None Drugs: Cannabis, Methamphetamine - Immunization History Hx Tetanus Toxoid Vaccination: Yes (UTD) Hx Influenza Vaccination: Yes Hx Pneumococcal Vaccination: Yes - Home Medications Home Medications: Ambulatory Orders Medication Instructions Recorded Gabapentin [Neurontin] 200 mg PO TID 30 Days #90 cap 07/04/18 QUEtiapine [Seroquel] 100 mg PO HS 30 Days #30 tab 07/04/18 Sertraline [Zoloft] 50 mg PO DAILY 30 Days #30 tab 07/04/18 Amoxicillin 875 mg PO BID #20 tablet 07/11/18 Ibuprofen [Motrin Tab] 600 mg PO TID PRN #15 tab 07/11/18 Ibuprofen [Motrin] 600 mg PO Q6H PRN #20 tab 09/24/18 Bacitracin Ointment [Bacitracin] 0.5 gm TOP BID #1 tube 10/08/18 - Allergies Allergies/Adverse Reactions: Allergies Allergy/AdvReac Type Severity Reaction Status Date / Time No Known Allergies Allergy Verified 10/08/18 17:35 Review of Systems ROS Statement: Except As Marked, All Systems Reviewed And Found Negative Skin: Positive for: Other (wound to back of head, with discharge) Physical Exam - Reviewed Nursing Documentation Reviewed: Yes Vital Signs Reviewed: Yes - Physical Exam Appears: Positive for: Well, Non-toxic, No Acute Distress Head Exam: Positive for: NORMOCEPHALIC. Negative for: ATRAUMATIC (no erythema, but noted 2 cm fleshy material on scalp.) Skin: Positive for: Normal Color, Warm, Dry Eye Exam: Positive for: Normal appearance Neurologic/Psych: Positive for: Alert, Oriented (3x) - ECG O2 Sat by Pulse Oximetry: 98 (RA) Pulse Ox Interpretation: Normal - Progress ED Course And Treament: HEAD CT: No acute intracranial abnormalities. No significant findings to account for the clinical presentation. Cutaneous and subcutaneous findings scalp in the region of the posterior left parietal occipital area. No adjacent calvarial or intracranial abnormalities. Medical Decision Making Medical Decision Makin:35 Initial impression: 28 year old male with an ongoing head wound Call placed to family medicine to arrange follow up. Scribe Attestation: Documented Riddhi Junior, acting as a scribe for Neville Ayoub PA-C. Provider Scribe Attestation: All medical record entries made by the Scribe were at my direction and personally dictated by me. I have reviewed the chart and agree that the record accurately reflects my personal performance of the history, physical exam, medical decision making, and the department course for this patient. I have also personally directed, reviewed, and agree with the discharge instructions and disposition. Disposition - Clinical Impression Clinical Impression: Visit for wound check - Patient ED Disposition Is Patient to be Admitted: No - Disposition Referrals: [facility] [Outside] [facility] [Outside] Disposition: Routine/Home Disposition Time: 18:11 Condition: FAIR Prescriptions: Bacitracin Ointment [Bacitracin] 0.5 gm TOP BID #1 tube Instructions: Wound Care (DC)
== END 2018-10-08 18:30 | disposition home or self-care (01) ==
LOC: H.ER 17:20
DX: Z48.00 Encounter for change or removal of nonsurgical wound dressing (principal); Z86.59 Personal history of other mental and behavioral disorders; S09.90XA Unspecified injury of head, initial encounter

== ENCOUNTER 2018-10-16 11:42 | Emergency (ER) | payer MEDICAID ==
[2018-10-16 11:43] VITALS: BMI 21.9
[2018-10-16 11:48] VITALS: BP 124/77; TEMP 97.4
[2018-10-16] MEDS ORDERED: Naproxen 500 MG TAB PO STA (12:21)
--- NOTE | 2018-10-16 12:30 | ED PDOC ---
Upper Extremity Pain/Injury Time Seen by Provider: 10/16/18 12:08 Chief Complaint (Nursing): Upper Extremity Problem/Injury Chief Complaint (Provider): Left shoulder pain History Per: Patient Additional Complaint(s): 28 y/o M with hx of anxiety/depression who presents with left shoulder pain and weakness. Pt was hospitalized for about 1 month from [place] to the end of August after accidentally ingesting crystal Meth (which he thought was a "luci") in addition to marijuana requiring him to be intubated and have to go to rehab center post-discharge. He has stopped going to Physical therapy since then. He comes today c/o B/L shoulder and clavicle pain and weakness but mostly on the left for the past month since being discharged from the hospital. He is unable to raise his arms past shoulder height. Denies numbness/tingling, fal l/trauma. Past Medical History Reviewed: Historical Data, Nursing Documentation, Vital Signs Vital Signs: Last Vital Signs Temp 97.4 F L 10/16/18 11:47 Pulse 118 H 10/16/18 11:47 Resp 17 10/16/18 11:47 BP 124/77 10/16/18 11:47 Pulse Ox 100 10/16/18 11:47 - Medical History PMH: Anxiety, Bipolar Disorder, Depression, Schizophrenia Denies: Diabetes, Hepatitis, HIV, HTN, Chronic Kidney Disease, Seizures, Sexually Transmitted Disease - Family History Family History: States: Unknown Family Hx - Immunization History Hx Tetanus Toxoid Vaccination: Yes (UTD) Hx Influenza Vaccination: Yes Hx Pneumococcal Vaccination: Yes - Home Medications Home Medications: Ambulatory Orders Medication Instructions Recorded Gabapentin [Neurontin] 200 mg PO TID 30 Days #90 cap 07/04/18 QUEtiapine [Seroquel] 100 mg PO HS 30 Days #30 tab 07/04/18 Sertraline [Zoloft] 50 mg PO DAILY 30 Days #30 tab 07/04/18 Bacitracin Ointment [Bacitracin] 0.5 gm TOP BID #1 tube 10/08/18 Ibuprofen [Motrin] 600 mg PO Q8 PRN #21 tab 10/08/18 Naproxen 500 mg PO BID PRN 7 Days tab 10/16/18 - Allergies Allergies/Adverse Reactions: Allergies Allergy/AdvReac Type Severity Reaction Status Date / Time No Known Allergies Allergy Verified 10/08/18 17:35 Review of Systems Constitutional: Negative for: Fever, Chills Musculoskeletal: Positive for: Shoulder Pain Physical Exam - Reviewed Nursing Documentation Reviewed: Yes Vital Signs Reviewed: Yes - Physical Exam Appears: Positive for: Non-toxic (emaciated) Head Exam: Positive for: ATRAUMATIC Neck: Positive for: Normal, Painless ROM Back: Positive for: Normal Inspection Extremity: Positive for: Other (poor muscle tone in shoulders and back. ). Negative for: Normal ROM (decreased ROM with abduction and flexion of left shoulder. ) Neurologic/Psych: Positive for: Alert, Oriented - ECG O2 Sat by Pulse Oximetry: 100 Medical Decision Making Medical Decision Making: Naproxen 500mg PO x 1 Pt advised to continue physical therapy to rebuild muscle mass given deconditioning from prolonged hospitalization. Disposition - Clinical Impression Clinical Impression: Shoulder pain - Patient ED Disposition Is Patient to be Admitted: No Counseled Patient/Family Regarding: Diagnosis, Need For Followup - Disposition Referrals: Mateusz Deluca MD [Medical Doctor] - Disposition: Routine/Home Disposition Time: 13:03 Condition: STABLE Additional Instructions: Take Naproxen or Ibuprofen for musculoskeletal shoulder pain. Follow up with your primary care doctor for further care (Dr. Mateusz Deluca [address] [place] [address]; ) and continue physical therapy to help rebuild muscle mass. Prescriptions: Naproxen 500 mg PO BID PRN 7 Days tab PRN Reason: Pain, Moderate (4-7) Instructions: Shoulder Pain (DC) Forms: [employer] (Turkmen) Print Language: FIJIAN
[2018-10-16 13:16] VITALS: PULSE 88; RESP 18
[2018-10-17 01:24] VITALS: O2SAT 100
== END 2018-10-16 13:16 | disposition home or self-care (01) ==
LOC: H.ER 11:42
DX: M25.512 Pain in left shoulder (principal); F20.9 Schizophrenia, unspecified; F31.9 Bipolar disorder, unspecified; F41.9 Anxiety disorder, unspecified

== ENCOUNTER 2018-10-18 12:11 | Emergency (ER) | payer MEDICAID ==
[2018-10-18 12:11] VITALS: BMI 21.9
[2018-10-18 12:24] VITALS: BP 112/57; PULSE 86; RESP 16; TEMP 97.9; O2SAT 99
--- NOTE | 2018-10-18 13:19 | ED PDOC ---
HPI: Psych/Substance Abuse Time Seen by Provider: 10/18/18 12:15 Chief Complaint (Nursing): Psychiatric Evaluation Chief Complaint (Provider): Psychiatric Evaluation History Per: Patient History/Exam Limitations: no limitations Onset/Duration Of Symptoms: Days (x7) Current Symptoms Are (Timing): Still Present Additional Complaint(s): Patient is a 28 y/o male with a PMHx of anxiety, depression, schizophrenia, and bipolar disorder who came to the ED for psychiatric evaluation and wound check. Patient was recently intubated after overdosing on "Cheryl lined with Crystal Meth" at a [employer]. After overdosing, patient had fallen on his head, as a result, sustaining a wound to the back of his head. Patient's wound had been dressed at the time, however, this morning patient decided to remove his dressing which peeled off the scab that had formed. Patient states he feels depressed, stressed, and anxious especially since he has not been able to go back to work. Patient also reports arm weakness. Patient denies alcohol abuse and suicidal or homicidal ideation. PCP: None Provided Past Medical History Reviewed: Historical Data, Nursing Documentation, Vital Signs Vital Signs: Last Vital Signs Temp 97.9 F 10/18/18 12:19 Pulse 86 10/18/18 12:19 Resp 16 10/18/18 12:19 BP 112/57 L 10/18/18 12:19 Pulse Ox 99 10/18/18 12:19 - Medical History PMH: Anxiety, Bipolar Disorder, Depression, Schizophrenia Denies: Diabetes, Hepatitis, HIV, HTN, Chronic Kidney Disease, Seizures, Sexually Transmitted Disease - Surgical History Surgical History: No Surg Hx - Family History Family History: States: Unknown Family Hx - Social History Alcohol: None Drugs: Cannabis, Methamphetamine - Immunization History Hx Tetanus Toxoid Vaccination: Yes (UTD) Hx Influenza Vaccination: Yes Hx Pneumococcal Vaccination: Yes - Home Medications Home Medications: Ambulatory Orders Medication Instructions Recorded Gabapentin [Neurontin] 200 mg PO TID 30 Days #90 cap 07/04/18 QUEtiapine [Seroquel] 100 mg PO HS 30 Days #30 tab 07/04/18 Sertraline [Zoloft] 50 mg PO DAILY 30 Days #30 tab 07/04/18 Bacitracin Ointment [Bacitracin] 0.5 gm TOP BID #1 tube 10/08/18 Ibuprofen [Motrin] 600 mg PO Q8 PRN #21 tab 10/08/18 Naproxen 500 mg PO BID PRN 7 Days tab 10/16/18 Cephalexin [cephalexin] 500 mg PO QID #40 cap 10/18/18 - Allergies Allergies/Adverse Reactions: Allergies Allergy/AdvReac Type Severity Reaction Status Date / Time No Known Allergies Allergy Verified 10/08/18 17:35 Review of Systems ROS Statement: Except As Marked, All Systems Reviewed And Found Negative Constitutional: Positive for: Weakness (on arms) Skin: Positive for: Other (wound on back of head) Psych: Positive for: Anxiety, Depression. Negative for: Suicidal ideation (or homicidal ideation) Physical Exam - Reviewed Nursing Documentation Reviewed: Yes Vital Signs Reviewed: Yes - Physical Exam Appears: Positive for: Non-toxic, No Acute Distress Head Exam: Negative for: NORMAL INSPECTION (right occipital abrasion that is 1 cm in diameter) Skin: Positive for: Normal Color (right occipital abrasion is without signs of infection, drainage or discharge, warmth or streaking; scabbing on wound has been removed), Warm, Dry Eye Exam: Positive for: Normal appearance, EOMI, PERRL Neck: Positive for: Normal, Painless ROM, Supple Cardiovascular/Chest: Positive for: Regular Rate, Rhythm. Negative for: Murmur Respiratory: Positive for: Normal Breath Sounds. Negative for: Respiratory Distress Pulses-Carotid (L): 2+ Pulses-Carotid (R): 2+ Pulses-Radial (L): 2+ Pulses-Radial (R): 2+ Extremity: Positive for: Normal ROM. Negative for: Pedal Edema, Deformity Neurologic/Psych: Positive for: Alert, Oriented. Negative for: Motor/Sensory Deficits - ECG O2 Sat by Pulse Oximetry: 99 (RA) Pulse Ox Interpretation: Normal Medical Decision Making Medical Decision Making: Time: 1310 Impression: 1.) Wound check for cranial abrasion 2.) Crisis Evaluation Plan: - Dress wound with non-stick. Provide patient with additional non-stick. Patient will be given antibiotic Prophylaxis. - Crisis Evaluation ( this was refused by the patient and a list of external services was provided in writing) Scribe Attestation: Documented by Yohan Welsh, acting as a scribe for DUC Aguirre. Provider Scribe Attestation: All medical record entries made by the Scribe were at my direction and personally dictated by me. I have reviewed the chart and agree that the record accurately reflects my personal performance of the history, physical exam, medical decision making, and the department course for this patient. I have also personally directed, reviewed, and agree with the discharge instructions and disposition. Disposition - Clinical Impression Clinical Impression: Encounter for re-check of laceration wound, Anxiety about health - Patient ED Disposition Is Patient to be Admitted: No Counseled Patient/Family Regarding: Diagnosis, Rx Given - Disposition Referrals: [facility] [Outside] [facility] [Outside] [facility] [Outside] Disposition: Routine/Home Disposition Time: 15:31 Condition: STABLE Prescriptions: Cephalexin [cephalexin] 500 mg PO QID #40 cap Instructions: Anxiety, Adult (DC) Forms: [employer] (Kinyarwanda)
== END 2018-10-18 15:35 | disposition home or self-care (01) ==
LOC: H.ER 12:11
DX: F41.9 Anxiety disorder, unspecified (principal); F31.9 Bipolar disorder, unspecified; F20.9 Schizophrenia, unspecified